=== PATIENT | male | born 1955 | race Caucasian/White ===

== ENCOUNTER 2018-03-29 05:59 | Inpatient (IN) | payer BC ==
[~2018-03-29] VITALS: Ht 175.3 cm; Wt 70.3 kg
[2018-03-29] VITALS (22 sets, daily range): BP systolic 98–149; BP diastolic 60–113
[2018-03-29] MEDS ORDERED: NS IV 1000 ML 1,000 ML ONE (06:27)
[2018-03-29] MEDS ORDERED: NS IV 1000 ML 1,000 ML IV SCH (06:30)
[2018-03-29 06:46] LABS: BASOPHILS % (AUTO) 0 % (0-10); EOSINOPHILS # (AUTO) 0.1 10^3/uL (0.0-0.3); EOSINOPHILS % (AUTO) 1 % (0-10); HEMATOCRIT 43 % (40-54); LYMPHOCYTES # (AUTO) 1.4 X 10^3 (1.0-4.0); LYMPHOCYTES % (AUTO) 12 % (12-44); MEAN CORPUSCULAR HEMOGLOBIN 30 PG (25-34); MEAN CORPUSCULAR HGB CONC 35 G/DL (32-36); MEAN CORPUSCULAR VOLUME 87 FL (80-99); MEAN PLATELET VOLUME 11.5 FL (7.4-10.4); MONOCYTES # (AUTO) 0.9 X 10^3 (0.0-1.0); MONOCYTES % (AUTO) 8 % (0-12); NEUTROPHILS # (AUTO) 9.3 X 10^3 (1.8-7.8); NEUTROPHILS % (AUTO) 79 % (42-75); PLATELET COUNT 203 10^3/uL (130-400); RED BLOOD COUNT 4.93 10^6/uL (4.35-5.85); WHITE BLOOD COUNT 11.7 10^3/uL (4.3-11.0)
[2018-03-29 07:08] LABS: ALANINE AMINOTRANSFERASE 17 U/L (0-55); ALKALINE PHOSPHATASE 69 U/L (40-136); BILIRUBIN,TOTAL 0.4 MG/DL (0.1-1.0); BUN/CREATININE RATIO 18; CALCIUM 8.8 MG/DL (8.5-10.1); CARBON DIOXIDE 20 MMOL/L (21-32); CHLORIDE 109 MMOL/L (98-107); GFR ESTIMATED > 60; GLUCOSE 102 MG/DL (70-105); POTASSIUM 3.8 MMOL/L (3.6-5.0); SODIUM 140 MMOL/L (135-145); TOTAL PROTEIN 6.4 GM/DL (6.4-8.2)
[2018-03-29 07:15] LABS: MYOGLOBIN SERUM 226.7 NG/ML (10.0-92.0)
--- NOTE | 2018-03-29 07:15 | Cardiology History & Physical ---
HPI-Cardiology Cardiology Consultation Date of Consultation 03/29/18 Date of Admission Time Seen by Provider: 07:11 Indication: chest pain HPI 62 years old gentleman with history of coronary artery disease, had a myocardial infarction over 10 years ago had a stent then occlusion of the stent and reported having another cleanout of the stent, does not follow up with a physician, does not take any medication and smokes. Started having chest pain last night/early this morning while working at [employer]. Pain persisted became diaphoretic CAD shortness of breath and lightheadedness. Came into the emergency room and given sublingual nitroglycerin which improved his chest pain. Started the pain again, given Nitropatch, while I was visiting with him he was still having some retrosternal chest discomfort, no similar episode recently. No recent trauma or bleeding. PMH-Cardiology Seasonal Allergies Seasonal Allergies: No Surgeries Yes Respiratory No Cardiovascular Yes (previous cardiac stent) Coronary Artery Disease Neurological No Genitourinary No Gastrointestinal No Musculoskeletal Yes Arthritis, Chronic Back Pain Endocrine No HEENT Yes ("lazy eye" surgery and nail through eye plus surgery) Eye Injury Hearing Impairment: Hard of Hearing Cancer No Psychosocial No Integumentary No Blood Transfusions No Social History Patient Social History Marrital Status: Employed/Student: employed Alcohol Use: Denies Use Recreational Drug Use: No Smoking: Current every day smoker Recent Foreign Travel: No Contact w/other who traveled: No Recent Infectious Disease Expo: No Family Hx Other strong family history of heart disease Family History: Cardiovascular disease 19 FATHER 19 MOTHER grandfather grandfather ROS-Cardiology Review of Systems General: No Chills, No Night Sweats; Fatigue; No Malaise, No Appetite HEENT: No Head Aches, No Visual Changes, No Eye Pain, No Ear Pain, No Dysphasia , No Sinus Congestion, No Post Nasal Drip, No Sore Throat Pulmonary: Dyspnea; No Cough, No Pleuritic Chest Pain Cardiovascular: Chest Pain; No: Palpitations, Orthopnea, Paroxysmal Noc. Dyspnea, Edema, Lt Headedness Gastrointestinal: Nausea; No: Vomiting, Abdominal Pain, Diarrhea, Constipation , Melena, Hematochezia Genitourinary: No Dysuria, No Frequency, No Incontinence, No Hematuria, No Retention Musculoskeletal: No: neck pain, shoulder pain, arm pain, back pain, hand pain, leg pain, foot pain Neurological: No: Weakness, Numbness, Incoordination, Change in speech, Confusion, Seizures Home Medications & Allergies Allergies: Coded Allergies: No Known Drug Allergies (Unverified , 03/29/18) Home Medication List Reviewed: Yes does not take any medication Exam-Cardiology Vital Signs Vital Signs Date Time Temp Pulse Resp B/P (MAP) Pulse Ox O2 Delivery O2 Flow Rate FiO2 03/29/18 06:09 60 03/29/18 06:08 98.1 16 141/95 (110) 98 Nasal Cannula 2.00 Exam General Appearance: Alert, Oriented X3, Cooperative, No Acute Distress HEENT: Atraumatic, PERRLA Respiratory: Clear to Auscultation, Normal Air Movement Cardiovascular: Regular Rate, Normal S1, Normal S2, No Murmurs Abdominal: Normal Bowel Sounds, Soft, No Tenderness, No Hepatosplenomegaly, No Masses Extremities: No Clubbing, No Cyanosis, No Edema, Normal Pulses, No Tenderness/ Swelling Skin: No Rashes, No Breakdown, No Significant Lesion Neuro: Normal Gait, Normal Speech, Strength at 5/5 X4 Ext, Normal Tone, Sensation Intact Psych/Mental Status: Mental Status NL, Mood NL Results Labs Labs Laboratory Tests 03/29/18 06:35: White Blood Count 11.7H, Red Blood Count 4.93, Hemoglobin 15.0, Hematocrit 43, Mean Corpuscular Volume 87, Mean Corpuscular Hemoglobin 30, Mean Corpuscular Hemoglobin Concent 35, Red Cell Distribution Width 14.0, Platelet Count 203, Mean Platelet Volume 11.5H, Neutrophils (%) (Auto) 79H, Lymphocytes (%) (Auto) 12, Monocytes (%) (Auto) 8, Eosinophils (%) (Auto) 1, Basophils (%) (Auto) 0, Neutrophils # (Auto) 9.3H, Lymphocytes # (Auto) 1.4, Monocytes # (Auto) 0.9, Eosinophils # (Auto) 0.1, Basophils # (Auto) 0.0, Sodium Level 140, Potassium Level 3.8, Chloride Level 109H, Carbon Dioxide Level 20L, Anion Gap 11, Blood Urea Nitrogen 14, Creatinine 0.80, Estimat Glomerular Filtration Rate > 60, BUN/ Creatinine Ratio 18, Glucose Level 102, Calcium Level 8.8, Corrected Calcium 8.8 , Total Bilirubin 0.4, Aspartate Amino Transf (AST/SGOT) 18, Alanine Aminotransferase (ALT/SGPT) 17, Alkaline Phosphatase 69, Total Protein 6.4, Albumin 4.0 A/P-Cardiology Admission Diagnosis Unstable angina Coronary artery disease Second-degree AV block Mobitz 1 Hypertension Tobaccoism Admission Status: Observation Assessment/Plan Unstable angina, having active chest pain, having nitroglycerin patch, I will evaluate EKG and planning to proceed with emergency cardiac catheterization Coronary artery disease, history of old myocardial infarction, reporting having a stent over 10 years ago. Not taking any medication Hypertension, will start him on anti-hypertensive medication, probably would not tolerate beta blockers due to second degree AV block Second-degree AV block Mobitz 1, transient occurred while in the emergency room on telemetry. Was asymptomatic other than his chest pain Hyperlipidemia, I will evaluate lipid profile Tobaccoism, educated on smoking cessation. Noncompliance with medication, educated about compliance Clinical Quality Measures DVT/VTE Risk/Contraindication: Risk Factor Score Per Nursin RFS Level Per Nursing on Admit: 3=High AUDIE WHALEY MD Mar 29, 2018 07:15
--- NOTE | 2018-03-29 07:15 | Cardiac Procedure Note-CS/ASA ---
Pre-Procedure Note Pre-Op Procedure Note H&P Reviewed The H&P was reviewed, patient examined and no changes noted. Date H&P Reviewed: Mar 29, 2018 Time H&P Reviewed: 07:15 Conscious Sedation Pre-Proced Time 07:15 ASA Score 3 For ASA 3 and 4: Consider anesthesia and medical clearance. Also, for patients with a history of failed moderate sedation consider anesthesia. Airway Lungs Heart ASA score ASA 1: a normal healthy patient ASA 2: a patient with a mild systemic disease (mid diabetes, controlled hypertension, obesity x ASA 3: a patient with a severe systemic disease that limits activity (angina , COPD, prior Myocardial infarction) ASA 4: a patient with an incapacitating disease that is a constant threat to life (CHF, renal failure) ASA 5: a moribund patient not expected to survive 24 hrs. (ruptured aneurysm) ASA 6: a declared brain patient whose organs are being harvested. For emergent operations, add the letter E after the classification Mallampati Classification Grade 3 Sedation Plan Analgesia, Amnesia, Plan communicated to team members, Discussed options with patient/fam, Discussed risks with patient/fam The patient is an appropriate candidate to undergo the planned procedure, sedation, and anesthesia. The patient immediately re-assessed prior to indication. AUDIE WHALEY MD Mar 29, 2018 07:15
[2018-03-29] MEDS ORDERED: LIDOCAINE 1% INJ 20 ML 20 ML VIAL INJ ONE (07:51)
[2018-03-29] MEDS ORDERED: HEParin 1000 UNIT/ML (10ML VIAL) FOR BOLUS IV ONE (07:51)
[2018-03-29] MEDS ORDERED: HEParin (CATH LAB) 1,000 ML IV ONE (07:51)
[2018-03-29] MEDS ORDERED: MIDAZOLAM 5 MG/5 ML (VERSED) VIAL IV ONE (07:52)
[2018-03-29] MEDS ORDERED: fentaNYL INJECTION 100 MCG/2 ML AMP INJ ONE (07:52)
[2018-03-29 07:55] LABS: INR 1.1 (0.8-1.4); PROTHROMBIN TIME PATIENT 14.2 SEC (12.2-14.7)
[2018-03-29] MEDS ORDERED: FLU QUADRIvalent (5+ YOA) 2018-2019 (AFLURIA) 0.5 ML IM ONE (08:15)
[2018-03-29] MEDS ORDERED: NITRO DRIP 25000 MCG/D5W 250 ML IV ONE (08:42)
[2018-03-29] MEDS ORDERED: EPTIFIBATIDE BOLUS 10 ML IV ONE (08:45)
[2018-03-29] MEDS ORDERED: PATIENT MAY USE OWN MEDS, ALL PO SCH (09:00)
[2018-03-29] MEDS ORDERED: TICAGRELOR 90 MG TABLET (BRILINTA) PO ONE (09:17)
[2018-03-29] MEDS ORDERED: ASPIRIN 325 MG (5 GR) TABLET PO ONE (09:17)
[2018-03-29] MEDS: NS IV 1000 ML 1,000 ML IV SCH ×2 (10:39→20:21)
[2018-03-29] MEDS: PANTOPRAZOLE 40 MG (PROTONIX) TAB PO SCH (10:39)
[2018-03-29] MEDS: TICAGRELOR 90 MG TABLET (BRILINTA) PO SCH ×2 (10:40→21:10)
[2018-03-29] MEDS: ASPIRIN E.C. 81 MG (ECOTRIN) TAB PO SCH (10:40)
--- NOTE | 2018-03-29 13:40 | Cardiac Cath Report ---
Cardiac Cath Report Physician (s)/Pot Feeder (s) Physician AUDIE WHALEY MD Pre-Procedure Diagnosis Pre-Procedure Diagnosis: acute myocardial infarction Post-Procedure Note Name of Procedure: Left heart catheterization Stent to the circumflex artery Findings/Procedure Note PROCEDURE NOTE: 62 years old gentleman with history of coronary artery disease had a stent to the LAD in the remote past. Started having acute chest pain sudden onset, had minimal EKG changes. Cardiac enzymes were negative, he was transferred from [place] to our hospital. Upper my evaluation patient was having active chest pain, I called for emergency cardiac catheterization After explaining the procedure to the patient, all pros and cons were explained , all questions were answered. The patient signed the consent and then he was placed on the cardiac catheterization laboratory. Groin was prepped SL fashion local anesthesia was used. Sheath placed in the right femoral artery. Chandrika right and left catheter were used to access the coronary system. Chandrika right catheter was advanced to the left ventricular cavity, left ventricular gram was done. Pullback LV to aorta was done. Next Patient was given 7000 units of heparin, single bolus of Integrilin. EBU guide was used, had total occlusion of the circumflex artery distally. BMW wire was advanced then predilated location with 2.5 balloon was done then I proceeded with placement of Brenda drug-eluting stent 2.5 time 18 mm expanded to 2.71 mm with excellent results. No complication noted. At the end of the procedure the sheath was removed. Closure device was used FINDINGS: Hemodynamics LV 129/19, end-diastolic pressure of 19 Aorta 146/79 mean of 109 ANATOMY: Left Main is free of obstructive disease Left Anterior Descending has patent stent with mild to moderate disease nonobstructive disease in the LAD Left Circumflex is totally occluded at the mid to distal portion, successful emergency angioplasty then stenting using Brenda 2.5 time 18 mm expanded to 2.71 mm with excellent results Right Coronory Artery is dominant artery with mild disease no obstructive disease LV Gram is normal in size with normal contraction. Estimated ejection fraction 60 percent CONCLUSION: 1. Acute myocardial infarction, non-ST elevation myocardial infarction with total occlusion of the circumflex artery successful emergency angioplasty then stenting using Brenda 2.5 time 18 mm expanded to 2.71 mm with excellent results 2. Patent stent in the LAD with mild disease nonobstructive disease 3. Mild disease in the dominant right coronary artery nonobstructive disease 4. Normal left ventricular size and systolic function estimated ejection fraction 60 percent DISCUSSION AND RECOMMENDATION: Continue to maximize medical therapy Anesthesia Type: Conscious Sedation Estimated blood loss (mL): 20 ml Contrast Amount: 140 ml Total Radiation Dose: 685 mGy Post-Procedure Diagnosis Post-operative diagnosis: Non-ST myocardial infarction Coronary artery disease Hypertension Hyperlipidemia AUDIE WHALEY MD Mar 29, 2018 13:40
[2018-03-29] MEDS: OMEGA 3 (FISH OIL) 1000 MG CAP PO SCH (17:25)
[2018-03-29] MEDS ORDERED: ATORVASTATIN 80 MG (LIPITOR) TABLET PO SCH (21:00)
[2018-03-30] VITALS (12 sets, daily range): BP systolic 106–147; BP diastolic 64–94
[2018-03-30 03:46] LABS: HEMOGLOBIN 14.9 G/DL (13.3-17.7); MEAN PLATELET VOLUME 11.7 FL (7.4-10.4); RED BLOOD COUNT 4.91 10^6/uL (4.35-5.85); RED CELL DISTRIBUTION WIDTH 14.3 % (10.0-14.5); WHITE BLOOD COUNT 8.5 10^3/uL (4.3-11.0)
[2018-03-30 04:00] LABS: BUN/CREATININE RATIO 13; CARBON DIOXIDE 19 MMOL/L (21-32); CHLORIDE 111 MMOL/L (98-107); CREATININE SERUM 0.79 MG/DL (0.60-1.30); GFR ESTIMATED > 60; GLUCOSE 95 MG/DL (70-105); POTASSIUM 4.1 MMOL/L (3.6-5.0); SODIUM 140 MMOL/L (135-145)
[2018-03-30] MEDS: NS IV 1000 ML 1,000 ML IV SCH (05:00)
[2018-03-30] MEDS: OMEGA 3 (FISH OIL) 1000 MG CAP PO SCH (06:44)
[2018-03-30] MEDS ORDERED: ATOR80TA76 PO (09:01)
[2018-03-30] MEDS ORDERED: PANT40TA3 PO (09:01)
[2018-03-30] MEDS ORDERED: TICA90TA PO (09:01)
[2018-03-30] MEDS ORDERED: ASPI-983 PO (09:01)
[2018-03-30] MEDS ORDERED: OMG1KC PO (09:01)
--- NOTE | 2018-03-30 09:03 | Discharge Inst-Post CATH ---
Discharge Inst-CATH/EP Post Cardiac Cath/EP D/C Inst Follow Up/Plan Appointment with Dr. Rahman's office in 2 weeks CARDIAC CATH DISCHARGE INSTRUCTIONS *Hold Metformin for 48 hours post heart cath. ACTIVITY * Go Home directly and rest. * Limit activity of the leg (or wrist if it was used) for 7 days including aerobics, swimming, jogging, bicycling, etc. * Restrict stair-climbing for 7 days if possible, if not, climb up with your non -cath leg, then bring together on the same step. * Avoid lifting, pushing, pulling or excessive movement of the affected extremity for 7 days. * Customary sexual activity may be resumed after 2 days-use caution not to use a position that strains or causes pain to the affected extremity. * No driving for 24 hours. * NO SMOKING. * Avoid straining for bowel movements for 7 days. * Gentle walking on level ground is allowed. * Returning to work will depend on the type of procedure and the results. Your doctor will discuss this with you. CALL YOUR DOCTOR FOR ANY OF THE FOLLOWING: *If bleeding from the puncture site occurs- Apply gentle pressure to site with clean cloth and call your doctor or EMS. * If a knot or lump forms under the skin, increases in size, or causes pain. * If bruising appears to be worsening or moving further down your leg instead of disappearing. * Temperature above 101 F. CARE OF YOUR GROIN INCISION; * Bruising or purple discoloration of the skin near the puncture site is common. * You may shower only, no bathtub bathing for 5 days. Be careful to avoid slipping as your leg may feel stiff. * If a closure device was used on your femoral artery, please see the attached guide regarding care of the device and your leg. * Leave the dressing on, until removed by office staff. CARE OF YOUR WRIST INCISION; * Bruising or purple discoloration of the skin near the puncture site is common. * You may shower. * DO NOT submerge wrist. * Leave dressing on, until removed by office staff.. AUDIE RAHMAN MD Mar 30, 2018 09:03
[2018-03-30] MEDS: PANTOPRAZOLE 40 MG (PROTONIX) TAB PO SCH (09:05)
[2018-03-30] MEDS: TICAGRELOR 90 MG TABLET (BRILINTA) PO SCH (09:05)
[2018-03-30] MEDS: ASPIRIN E.C. 81 MG (ECOTRIN) TAB PO SCH (09:05)
--- NOTE | 2018-03-30 09:07 | Cardiology Discharge Summary ---
Diagnosis/Chief Complaint Date of Admission Mar 29, 2018 at 06:05 Date of Discharge March 30, 2000 Admission Diagnosis Unstable angina Coronary artery disease Second-degree AV block Mobitz 1 Hypertension Tobaccoism Discharge Diagnosis Non-ST elevation myocardial infarction Coronary artery disease Second-degree AV block Mobitz 1 Hypertension Tobaccoism Chief Complaint/HPI Chief Complaint/HPI 62 years old gentleman with history of coronary artery disease, had a myocardial infarction over 10 years ago had a stent then occlusion of the stent and reported having another cleanout of the stent, does not follow up with a physician, does not take any medication and smokes. Started having chest pain last night/early this morning while working at [employer]. Pain persisted became diaphoretic CAD shortness of breath and lightheadedness. Came into the emergency room and given sublingual nitroglycerin which improved his chest pain. Started the pain again, given Nitropatch, while I was visiting with him he was still having some retrosternal chest discomfort, no similar episode recently. No recent trauma or bleeding. Patient was taken to the catheter lab, had total occlusion of the 2 distal circumflex artery underwent angina plasty and stenting to the artery with excellent results, had troponin rise. Feeling well today. Denied any active pain. Groin is healing well. Educated on his condition and on smoking cessation and he will be discharged home Discharge Summary Hospital Course Hospital Course Unstable angina, non-ST elevation myocardial infarction status post cardiac catheterization and stenting to the circumflex artery with excellent results. We'll continue on aspirin and Brilinta. Educated in length about compliance with medication Coronary artery disease, history of old myocardial infarction, reporting having a stent over 10 years ago. to catheterization results: 1. Acute myocardial infarction, non-ST elevation myocardial infarction with total occlusion of the circumflex artery successful emergency angioplasty then stenting using Brenda 2.5 time 18 mm expanded to 2.71 mm with excellent results 2. Patent stent in the LAD with mild disease nonobstructive disease 3. Mild disease in the dominant right coronary artery nonobstructive disease 4. Normal left ventricular size and systolic function estimated ejection fraction 60 percent Hypertension, unable to tolerate beta blockers due to second-degree AV block. It could be secondary to his myocardial infarction. Currently more stable. Continue to monitor Second-degree AV block Mobitz 1, transient occurred while in the emergency room on telemetry. Hyperlipidemia, started on Lipitor 80 mg daily Tobaccoism, educated on smoking cessation. Noncompliance with medication, educated about compliance Labs Laboratory Tests 03/29/18 06:35: White Blood Count 11.7H, Mean Platelet Volume 11.5H, Neutrophils (%) (Auto) 79H , Neutrophils # (Auto) 9.3H, Chloride Level 109H, Carbon Dioxide Level 20L, Myoglobin 226.7H 03/30/18 03:39: Mean Platelet Volume 11.7H, Chloride Level 111H, Carbon Dioxide Level 19L, Troponin I 18.90*H Procedures None. Discharge Physical Examination Allergies: Coded Allergies: No Known Drug Allergies (Unverified , 03/29/18) Vitals & I&Os Vital Signs Date Time Temp Pulse Resp B/P (MAP) Pulse Ox O2 Delivery O2 Flow Rate FiO2 03/30/18 07:40 95 Room Air 03/30/18 07:00 98.9 64 18 124/83 (97) 03/30/18 04:00 2.00 General Appearance: Alert, Oriented X3, Cooperative, No Acute Distress HEENT: Atraumatic, PERRLA Respiratory: Clear to Auscultation, Normal Air Movement Cardiovascular: Regular Rate, Normal S1, Normal S2, No Murmurs Abdominal: Normal Bowel Sounds, Soft, No Tenderness, No Hepatosplenomegaly, No Masses Extremities: No Clubbing, No Cyanosis, No Edema, Normal Pulses, No Tenderness/ Swelling Skin: No Rashes, No Breakdown, No Significant Lesion Neuro: Normal Gait, Normal Speech, Strength at 5/5 X4 Ext, Normal Tone, Sensation Intact, Cranial Nerves 3-12 NL, Reflexes 2+ Psych/Mental Status: Mental Status NL, Mood NL Discharge Home Medications Reviewed and agree with Discharge Medication list on patient's Discharge Instruction sheet Instructions to Patient/Family Please see electronic discharge instructions given to patient. Clinical Quality Measures DVT/VTE Risk/Contraindication: Risk Factor Score Per Nursin RFS Level Per Nursing on Admit: 3=High AUDIE WHALEY MD Mar 30, 2018 09:07
== END 2018-03-30 10:30 | disposition home or self-care (01) | DRG 247 ==
LOC: ICU 06:05
PROVIDERS: ADMIT Internal Medicine Cardiovascular Disease; ATTEND Internal Medicine Cardiovascular Disease
PROC: 027034Z Dilation of Coronary Artery, One Artery with Drug-eluting Intraluminal Device, Percutaneous Approach (ICD-10-PCS; principal; 2018-03-29)
PROC: 4A023N7 Measurement of Cardiac Sampling and Pressure, Left Heart, Percutaneous Approach (ICD-10-PCS; 2018-03-29)
PROC: B2111ZZ Fluoroscopy of Multiple Coronary Arteries using Low Osmolar Contrast (ICD-10-PCS; 2018-03-29)
PROC: B2151ZZ Fluoroscopy of Left Heart using Low Osmolar Contrast (ICD-10-PCS; 2018-03-29)
DX: I21.4 Non-ST elevation (NSTEMI) myocardial infarction (principal); I25.110 Atherosclerotic heart disease of native coronary artery with unstable angina pectoris; Z95.5 Presence of coronary angioplasty implant and graft; I25.2 Old myocardial infarction; F17.200 Nicotine dependence, unspecified, uncomplicated; I44.1 Atrioventricular block, second degree; I10 Essential (primary) hypertension; E78.5 Hyperlipidemia, unspecified; Z91.14 Patient's other noncompliance with medication regimen
CPT/HCPCS: 36415; 80048; 80053; 83874; 84484; 85025; 85027; 85347; 85610; 85730; 87081; 93005; 93458

== ENCOUNTER → 2018-12-10 | Outpatient (CLI) | payer BC ==
[~2018-12-10] MED LIST: ASPI-983 PO; ATOR80TA76 PO; OMG1KC PO; PANT40TA3 PO; TICA90TA PO
[2018-12-10] MEDS: CATHETER FLUSH 10 ML SYR IV PRN (07:20)
[2018-12-10 09:09] VITALS: BP 115/71
[2018-12-10 09:26] VITALS: BP 106/83
--- NOTE | 2018-12-10 16:04 | STRESS TEST ---
DATE OF SERVICE: 12/10/2018 [facility] STRESS TEST REPORT REFERRING PHYSICIAN: No local physician. Baseline heart rate is 63. Baseline blood pressure 112/73. Baseline EKG is sinus rhythm with no ischemic changes. In summary, the patient was injected with 10.8 mCi of technetium-99 Myoview and the resting images were obtained. Then, the patient started exercising with a baseline heart rate, blood pressure and EKG mentioned above. The patient was able to exercise for 8 minutes 45 seconds on standard Med protocol. With peak exercise level, EKG was showing [address] depression in II, III, aVF. Blood pressure was 192/91. During recovery, heart rate and blood pressure returned to baseline. EKG returned to baseline. The resting and stress images were reviewed and compared in the short axis, horizontal long axis, and vertical long axis views. Review of the images showed good radiotracer uptake with no significant ischemia or infarction. SSS is 2, SDS 0. TID value 1.1. On the gated images, the left ventricle appeared to be normal size with normal contractility. Calculated ejection fraction 60%. IN CONCLUSION: 1. Fair exercise tolerance, a total of 8 minutes 45 seconds on standard Med protocol, total of 10.1 METS achieving 86% of maximum expected heart rate. 2. Hypertensive response to exercise with peak blood pressure 192/91, returned to baseline during recovery. 3. Nondiagnostic EKG changes with exercise returned to baseline during recovery. 4. No ischemia or infarction on SPECT images. 5. Normal left ventricular size with normal contractility. Calculated ejection fraction 60%. Job ID: [id number] DocumentID: [id number] Dictated Date: 12/10/2018 15:55:30 Commercial Loan Specialist Date: 12/10/2018 16:03:36 Dictated By: AUDIE WHALEY MD
== END ==
LOC: CARD 06:55
PROVIDERS: ATTEND Internal Medicine Cardiovascular Disease
DX: I25.10 Atherosclerotic heart disease of native coronary artery without angina pectoris (principal); E78.2 Mixed hyperlipidemia; Z72.0 Tobacco use
CPT/HCPCS: 78452; 93017

== ENCOUNTER 2019-01-22 06:40 | Inpatient (IN) | payer BC ==
[2019-01-22] VITALS (11 sets, daily range): BP systolic 106–151; BP diastolic 80–92
[~2019-01-22] VITALS: Ht 175.2 cm; Wt 68.1 kg
[2019-01-22] MEDS ORDERED: morphine INJ 10 MG/ML 1ML (SYR OR VIAL) IVP STA (06:52)
--- NOTE | 2019-01-22 06:52 | ED Chest Pain ---
General Stated Complaint: CHEST PAIN History of Present Illness Date Seen by Provider: Jan 22, 2019 Time Seen by Provider: 06:48 Initial Comments 53-year-old male with known coronary artery disease status post LAD stent and circumflex MN with another stent in March 2018 He doesn't know the time of onset of symptoms but started this morning with severe lower substernal pain, says it feels like his prior episodes of coronary occlusion Not short of breath has had no nausea or vomiting, had 10/10 pain, started to lighten up here to 3-4, but then worse again Patient clearly in distress and writhing, says this is the same pain he's had with prior MIs Allergies and Home Medications Allergies Coded Allergies: No Known Drug Allergies (Unverified , 03/29/18) Home Medications Aspirin 81 Mg Tablet.dr, 81 MG PO DAILY Prescribed by: AUDIE WHALEY on 03/30/18900 Atorvastatin Calcium 80 Mg Tablet, 80 MG PO HS Prescribed by: AUDIE WHALEY on 03/30/18900 [place] 3 Polyunsat Fatty Acids 1,000 Mg Cap, 1,000 MG PO BID WITH MEALS Prescribed by: AUDIE WHALEY on 03/30/18900 Pantoprazole Sodium 40 Mg Tablet.dr, 40 MG PO DAILY Prescribed by: AUDIE WHALEY on 03/30/18900 Ticagrelor 90 Mg Tablet, 90 MG PO BID Prescribed by: AUDIE WHALEY on 03/30/18900 Patient Home Medication List Home Medication List Reviewed: Yes Review of Systems Review of Systems Constitutional: No fever Respiratory: Denies Shortness of Air Cardiovascular: Chest Pain Gastrointestinal: No Symptoms Reported Musculoskeletal: no symptoms reported Past Fpdhxbx-Ieqdgy-Xttdel Hx Patient Social History Type Used: Cigarettes Recent Foreign Travel: Yes Recent Hopitalizations: No Immunizations Up To Date PED Vaccines UTD: No Seasonal Allergies Seasonal Allergies: No Past Medical History Surgeries: Yes Respiratory: No Cardiac: Yes (previous cardiac stent) Neurological: No Genitourinary: No Gastrointestinal: No Musculoskeletal: Yes Arthritis, Chronic Back Pain Endocrine: No HEENT: Yes ("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 8.0oz. 70.128119kh; 22.8 BMI Method: General Appearance: Moderate Distress Cardiovascular: Regular Rate, Rhythm Gastrointestinal: Non Tender Extremity: No Pedal Edema Progress/Results/Core Measures Results/Orders Lab Results Laboratory Tests Test 01/22/19 06:54 Range/Units White Blood Count 9.0 4.3-11.0 10^3/uL Red Blood Count 5.22 4.35-5.85 10^6/uL Hemoglobin 15.7 13.3-17.7 G/DL Hematocrit 46 40-54 % Mean Corpuscular Volume 88 80-99 FL Mean Corpuscular Hemoglobin 30 25-34 PG Mean Corpuscular Hemoglobin Concent 34 32-36 G/DL Red Cell Distribution Width 13.4 10.0-14.5 % Platelet Count 268 130-400 10^3/uL Mean Platelet Volume 11.5 H 7.4-10.4 FL Neutrophils (%) (Auto) 48 42-75 % Lymphocytes (%) (Auto) 33 12-44 % Monocytes (%) (Auto) 14 H 0-12 % Eosinophils (%) (Auto) 4 0-10 % Basophils (%) (Auto) 1 0-10 % Neutrophils # (Auto) 4.4 1.8-7.8 X 10^3 Lymphocytes # (Auto) 3.0 1.0-4.0 X 10^3 Monocytes # (Auto) 1.3 H 0.0-1.0 X 10^3 Eosinophils # (Auto) 0.3 0.0-0.3 10^3/uL Basophils # (Auto) 0.1 0.0-0.1 10^3/uL Sodium Level 142 135-145 MMOL/L Potassium Level 4.0 3.6-5.0 MMOL/L Chloride Level 107 98-107 MMOL/L Carbon Dioxide Level 23 21-32 MMOL/L Anion Gap 12 5-14 MMOL/L Blood Urea Nitrogen 17 7-18 MG/DL Creatinine 0.86 0.60-1.30 MG/DL Estimat Glomerular Filtration Rate > 60 BUN/Creatinine Ratio 20 Glucose Level 96 70-105 MG/DL Calcium Level 9.4 8.5-10.1 MG/DL Corrected Calcium 9.2 8.5-10.1 MG/DL Magnesium Level 2.1 1.6-2.4 MG/DL Total Bilirubin 0.2 0.1-1.0 MG/DL Aspartate Amino Transf (AST/SGOT) 13 5-34 U/L Alanine Aminotransferase (ALT/SGPT) 15 0-55 U/L Alkaline Phosphatase 80 40-136 U/L Myoglobin 40.5 10.0-92.0 NG/ML Total Protein 6.7 6.4-8.2 GM/DL Albumin 4.2 3.2-4.5 GM/DL My Orders Orders - HERIBERTO FONG MD Cbc With Automated Diff (01/22/19 06:46) Magnesium (01/22/19 06:46) Chest 1 View Ap/Pa Only (01/22/19 06:46) Ekg Tracing (01/22/19 06:46) Comprehensive Metabolic Panel (01/22/19 06:46) Myoglobin Serum (01/22/19 06:46) Protime With Inr (01/22/19 06:46) Partial Thromboplastin Time (01/22/19 06:46) O2 (01/22/19 06:46) Monitor-Rhythm Ecg Trace Only (01/22/19 06:46) Lipid Panel (01/23/19 06:00) Ed Iv/Invasive Line Start (01/22/19 06:46) Troponin I Fs (01/22/19 06:46) Oxygen-Administer (01/22/19 06:52) Morphine Injection (Morphine Injection (01/22/19 06:52) Heparin (Bolus Per Protocol) (Heparin (B (01/22/19 07:04) Heparin (Bolus Per Protocol) (Heparin (B (01/22/19 07:15) Heparin Drip [id number] Unit/500ml (Heparin (01/22/19 07:18) Vital Signs/I&O 01/22/19 01/22/19 06:50 07:00 Temp 36.1 Pulse 88 Resp 21 B/P (MAP) 160/108 (125) Pulse Ox 99 O2 Delivery Room Air Nasal Cannula O2 Flow Rate 2.00 Initial ECG Impression Date: Jan 22, 2019 Initial ECG Impression Time: 07:27 Comment EKG shows sinus rhythm there is a hint perhaps [address] elevation in V2 this does not meet STEMI criteria troponin is 0.34 believe patient is is trying to evolve an anterior MN He's had Brillinta aspirin nitro paste oxygen morphine heparin bolus and drip Currently pulse is 95 blood pressure 152/108 Pain is actually much better with the moment Patient received his prior cardiac care at [facility] have discussed with Dr. Heredia sld inclusion teacher there this a.m. Plan is to transfer him urgently with heparin drip going to catheter lab there Departure Communication (Admissions) Time/Spoke to Admitting Phy: 07:32 Family Conversation Explained to the family suspect evolving MN transferring to Counselor/Art Therapist Impression Primary Impression: Acute myocardial infarction Qualified Codes: I21.4 - Non-ST elevation (NSTEMI) myocardial infarction Disposition: 09 ADMITTED INPATIENT Condition: Critical Admissions Decision to Admit Reason: Admit from ER (General) Decision to Admit/Date: Jan 22, 2019 Time/Decision to Admit Time: 07:31 Transfer Transfer Reason: Exceeds level of care Time Spoke to Accepting Phy: 07:31 Transfer Facility: [facility] patient's to go directly to Counselor/Art Therapist Dr. Heredia accepts Method of Transfer: EMS Departure-Patient Inst. Referrals: LASHAUN HAUSER MD (PCP/Family) Primary Care Physician HERIBERTO FONG MD Jan 22, 2019 06:52
[2019-01-22 07:00] LABS: HEMATOCRIT 46 % (40-54); HEMOGLOBIN 15.7 G/DL (13.3-17.7); MEAN CORPUSCULAR HEMOGLOBIN 30 PG (25-34); MEAN CORPUSCULAR VOLUME 88 FL (80-99)
[2019-01-22] MEDS ORDERED: ASPIRIN 81 MG CHEW (CHILDREN'S ASA) PO ONE (07:00)
[2019-01-22 07:01] LABS: BASOPHILS # (AUTO) 0.1 10^3/uL (0.0-0.1); BASOPHILS % (AUTO) 1 % (0-10); EOSINOPHILS # (AUTO) 0.3 10^3/uL (0.0-0.3); EOSINOPHILS % (AUTO) 4 % (0-10); LYMPHOCYTES % (AUTO) 33 % (12-44); MEAN CORPUSCULAR HGB CONC 34 G/DL (32-36); MEAN PLATELET VOLUME 11.5 FL (7.4-10.4); MONOCYTES # (AUTO) 1.3 X 10^3 (0.0-1.0); MONOCYTES % (AUTO) 14 % (0-12); NEUTROPHILS # (AUTO) 4.4 X 10^3 (1.8-7.8); NEUTROPHILS % (AUTO) 48 % (42-75); PLATELET COUNT 268 10^3/uL (130-400); RED CELL DISTRIBUTION WIDTH 13.4 % (10.0-14.5)
[2019-01-22] MEDS ORDERED: HEParin 1000 UNIT/ML (10ML VIAL) FOR BOLUS ONE (07:04)
--- NOTE | 2019-01-22 07:14 | NUR ---
FAMILY BROUGHT INTO THE ROOM.
[2019-01-22] MEDS ORDERED: HEParin 1000 UNIT/ML (10ML VIAL) FOR BOLUS IV SCH (07:15)
[2019-01-22] MEDS ORDERED: HEParin DRIP 25000 UNIT/500ML 500 ML IV ONE ×2 (07:18→07:24)
--- NOTE | 2019-01-22 07:22 | Diagnostic Imaging Report ---
Indication: Chest pain Portable chest 7:03 AM Heart size and pulmonary vascularity normal. Lungs are clear. There are no effusions or pneumothoraces. IMPRESSION: Negative chest Dictated by: Dictated on workstation # [id number]
[2019-01-22 07:25] LABS: CARBON DIOXIDE 23 MMOL/L (21-32); CHLORIDE 107 MMOL/L (98-107); SODIUM 142 MMOL/L (135-145)
[2019-01-22 07:26] LABS: ALANINE AMINOTRANSFERASE 15 U/L (0-55); ALBUMIN 4.2 GM/DL (3.2-4.5); ALKALINE PHOSPHATASE 80 U/L (40-136); BILIRUBIN,TOTAL 0.2 MG/DL (0.1-1.0); BUN/CREATININE RATIO 20; CALCIUM 9.4 MG/DL (8.5-10.1); CREATININE SERUM 0.86 MG/DL (0.60-1.30); GFR ESTIMATED > 60; GLUCOSE 96 MG/DL (70-105); MAGNESIUM 2.1 MG/DL (1.6-2.4); TOTAL PROTEIN 6.7 GM/DL (6.4-8.2)
[2019-01-22 07:27] LABS: INR 1.1 (0.8-1.4); PROTHROMBIN TIME PATIENT 14.5 SEC (12.2-14.7)
[2019-01-22] MEDS ORDERED: NS IV 1000 ML 1,000 ML ONE (07:28)
[2019-01-22] MEDS ORDERED: HEParin (CATH LAB) 2,000 ML IV ONE (07:28)
[2019-01-22] MEDS ORDERED: LIDOCAINE 1% INJ 20 ML 20 ML VIAL ONE (07:28)
[2019-01-22] MEDS ORDERED: MIDAZOLAM 5 MG/5 ML (VERSED) VIAL ONE (07:29)
[2019-01-22] MEDS ORDERED: fentaNYL INJECTION 100 MCG/2 ML AMP ONE (07:30)
[2019-01-22] MEDS ORDERED: EPTIFIBATIDE DRIP 100 ML IV ONE (08:19)
[2019-01-22] MEDS ORDERED: EPTIFIBATIDE BOLUS 20 ML IV ONE (08:19)
[2019-01-22] MEDS ORDERED: NITRO DRIP 25000 MCG/D5W 250 ML IV ONE (08:29)
[2019-01-22] MEDS ORDERED: NS (IVPB) 250 ML ONE (08:45)
[2019-01-22] MEDS ORDERED: niCARdipine 25 MG/10 ML (CARDENE) AMP IV ONE (08:45)
[2019-01-22] MEDS ORDERED: TICAGRELOR 90 MG TABLET (BRILINTA) PO ONE (09:05)
--- NOTE | 2019-01-22 09:32 | Cardiology History & Physical ---
HPI-Cardiology Cardiology H&P Date of Admission 01/22/19 Primary Care Physician Thony Saenz MD Attending Physician Clarisa Heredia MD, [facility] Primary reed or wind instrument repairer: Dr Rahman Consulting Physician [facility] CC: Severe, crushing chest pain HPI: 63 yo man who awoke with severe, crushing chest pain in the midsternum, feeling of extreme pressure, worst pain he has ever had. It was associated with diaphoresis, shortness of breath and a sense of impending doom. He went to the [facility] ER. Pain could not be controlled. ECG showed only subtle changes, but the clinical scenario was consistent with acute [place]. The ER physician called us. We advised transfer directly to our card labview programmer if he was willing to undergo cath and probable intervention. The ER physician spoke with the pt. Mr Vergara consented to transfer to our labview programmer for cath and probable PCI. He was transferred to us. We spoke with him again regarding our plans. He understood and provided oral consent. Procedure was undertaken immediately. The LAD was completely occluded within a mid-vessel stent. Emergency PCI was carried out with good results. Currently, he feels well and does not report any symptoms (after PCI) Review of Systems-Cardiology Review of Systems Constitutional: No weight loss, No weight gain Eyes: No vision change Ears/Nose/Throat: No ear discharge, No recent hearing loss Respiratory: As described under HPI Cardiovascular: As described under HPI Gastrointestinal: No diarrhea; nausea (during chest pain); No vomiting Genitourinary: No dysuria, No hematuria, No urine frequency changes Musculoskeletal: No back pain Skin: No rash, No ulcerations Psychiatric/Neurological: No seizure, No focal weakness, No syncope Hematologic: No bleeding abnormalities YDU-Lkohzf-Ahyiti Hx Patient Social History Alcohol Use: Denies Use Recreational Drug Use: No Smoking Status: Current Everyday Smoker Type Used: Cigarettes 2nd Hand Smoke Exposure: No Recent Foreign Travel: No Recent Infectious Disease Expo: No Hospitalization with Isolation: Denies Past Medical History PMH As described under Assessment. Family Medical History Family History: Cardiovascular disease 19 FATHER 19 MOTHER grandfather grandfather Allergies and Home Medications Allergies Coded Allergies: No Known Drug Allergies (Unverified , 03/29/18) Home Medications Aspirin 81 Mg Tablet., 81 MG PO DAILY Prescribed by: AUDIE RAHMAN on 12/23/18 0901 Atorvastatin Calcium 80 Mg Tablet, 80 MG PO HS Prescribed by: AUDIE RAHMAN on 03/30/18900 [place] 3 Polyunsat Fatty Acids 1,000 Mg Cap, 1,000 MG PO BID WITH MEALS Prescribed by: AUDIE RAHMAN on 03/30/18900 Pantoprazole Sodium 40 Mg Tablet.dr, 40 MG PO DAILY Prescribed by: AUDIE RAHMAN on 03/30/18900 Ticagrelor 90 Mg Tablet, 90 MG PO BID Prescribed by: AUDIE RAHMAN on 03/30/18900 Patient Home Medication List Home Medication List Reviewed: Yes Physical Exam-Cardiology Physical Exam Vital Signs/I&O 01/22/19 01/22/19 01/22/19 06:50 07:00 07:40 Temp 36.1 36.8 Pulse 88 99 Resp 21 20 B/P (MAP) 160/108 (125) 152/108 (123) Pulse Ox 99 99 O2 Delivery Room Air Nasal Cannula Nasal Cannula O2 Flow Rate 2.00 2.00 Capillary Refill : Less Than 3 Seconds Constitutional: AAO x 3, well-developed, well-nourished HEENT: PERRL, EOMI; No xanthelasmas are seen Neck: carotid pulses are 2 + bilaterally, with good upstrokes Respiratory: No accessory muscle use; other (good bilateral air entry) Cardiovascular: regular rate-rhythm, S1 and S2, systolic murmur (faint JANEL at card base) Gastrointestinal: No tender; soft; No guarding, No rebound; audible bowel sounds Extremities: No clubbing, No cyanosis, No significant edema Neurologic/Psychiatric: oriented x 3, grossly intact, power is 5/5 both on sides Skin: No rash on exposed areas, No ulcerations on exposed areas Data Review Labs Laboratory Tests 01/22/19 06:54: White Blood Count 9.0, Red Blood Count 5.22, Hemoglobin 15.7, Hematocrit 46, Mean Corpuscular Volume 88, Mean Corpuscular Hemoglobin 30, Mean Corpuscular Hemoglobin Concent 34, Red Cell Distribution Width 13.4, Platelet Count 268, Mean Platelet Volume 11.5H, Neutrophils (%) (Auto) 48, Lymphocytes (%) (Auto) 33, Monocytes (%) (Auto) 14H, Eosinophils (%) (Auto) 4, Basophils (%) (Auto) 1, Neutrophils # (Auto) 4.4, Lymphocytes # (Auto) 3.0, Monocytes # (Auto) 1.3H, Eosinophils # (Auto) 0.3, Basophils # (Auto) 0.1, Prothrombin Time 14.5, INR Comment 1.1, Activated Partial Thromboplast Time 32, Sodium Level 142, Potassium Level 4.0, Chloride Level 107, Carbon Dioxide Level 23, Anion Gap 12, Blood Urea Nitrogen 17, Creatinine 0.86, Estimat Glomerular Filtration Rate > 60, BUN/Creatinine Ratio 20, Glucose Level 96, Calcium Level 9.4, Corrected Calcium 9.2, Magnesium Level 2.1, Total Bilirubin 0.2, Aspartate Amino Transf (AST/SGOT) 13, Alanine Aminotransferase (ALT/SGPT) 15, Alkaline Phosphatase 80, Myoglobin 40.5, Troponin I 0.34*H, Total Protein 6.7, Albumin 4.2 A/P-Cardiology Assessment/Admission Diagnosis Acute STEMI CAD. Cath of 01/22/19 showed occluded midvessel stent in LAD to which successful PCI was carried out (PTCA followed by proximal, overlapping stenting with Brenda 2.5 x 12); patent stent in a large OM (Brenda 2.5 x 18 in Mar 2018); mild disease in RCA, LVEDP 20 mmHg, LVEF 45-50% Chronic tobacco use H/o intermittent noncompliance with meds H/o hyperlipidemia, treated with atorvastatin Admission Status: Inpatient Order (span 2 midnights) Reason for Inpatient Admission: Ac STEMI Discussion and Recomendations * Brilinta and low-dose ASA * Atorvastatin * Beta-kayla * Advised to quit smoking * Advised compliance with meds * Monitor labs Clinical Quality Measures AMI/AHF: ASA po Prior to arrival: Yes CLARISA HEREDIA MD FACP FAC CCDS Jan 22, 2019 09:32
[2019-01-22] MEDS ORDERED: PATIENT MAY USE OWN MEDS, ALL PO SCH (09:45)
[2019-01-22] MEDS ORDERED: ACETAMINOPHEN 325 MG TABLET PO PRN (09:45)
--- NOTE | 2019-01-22 10:35 | CARDIAC CATHETERIZATION ---
DATE OF SERVICE: 01/22/2019 CARDIAC CATHETERIZATION AND CARDIAC INTERVENTION REPORT The patient is a 63-year-old man who presented to the [facility] with crushing, severe chest pain, worst that he has ever had in his life. There was subtle electrocardiographic changes to suggest minimal ST elevation. The scenario was consistent with acute ST elevation myocardial infarction. We will advise transfer directly to our cardiac catheterization laboratory. The emergency room physician at [facility] spoke with the patient and the patient agreed to be transferred for cardiac catheterization and possible ad hoc coronary intervention. After the patient arrived to the cardiac catheterization laboratory, we confirmed this verbal consent with him. The procedure was then undertaken in an emergency manner. DESCRIPTION OF PROCEDURE: The right groin was prepared and draped in the usual sterile fashion. Intravenous heparin infusion was discontinued just prior to the insertion of the sheath. We used the Seldinger technique to advance a 6-Micronesian sheath in the right femoral artery. We used a 6-Micronesian JL4 guide catheter to carry out left coronary angiography. The left anterior descending artery was occluded in its mid portion at the site of a previously placed stent. To this, intervention was carried out as detailed below. Subsequently, we carried out angiography of the right coronary artery with a 6-Micronesian JR4 catheter. We carried out left heart catheterization, left ventricular angiography with a 6-Micronesian pigtail catheter. The catheter was pulled back and removed. Angiography of the right femoral artery was carried out through the sheath. Mynx was used to achieve hemostasis. PERCUTANEOUS INTERVENTION TO THE LEFT ANTERIOR DESCENDING: We used the 6-Micronesian JL4 guide catheter to advance a choice floppy wire. A double bolus of Integrilin was given. Integrilin infusion was continued throughout the procedure. He had received 5000 units of intravenous heparin in the emergency room at [facility] and was then on intravenous heparin, which was stopped just prior to the initiation of the angiography and interventional procedure. Integrilin infusion; however, was continued throughout the procedure. We were able to advance the ChoICE floppy wire across the complete occlusion in the mid left anterior descending artery with moderate difficulty. We carried out balloon angioplasty first with Emerge 1.5 x 20 mm balloon and then Emerge 2.5 x 15 mm balloon. This restored antegrade flow. Flow improved from SAI 0 to SAI 3. There was a small dissection just proximal to the proximal edge of previously placed stent. We placed Xience Brenda 2.5 x 12 mm stent that slightly overlaps the old stent. The stent was deployed at 20 atmospheres. Subsequent angiography revealed 0% residual stenosis. Flow throughout the vessel is SAI 3. The patient tolerated the procedure well. He had received oral aspirin in the emergency room at [facility]. At our cardiac catheterization laboratory, he received 180 mg of oral Brilinta. HEMODYNAMICS: Left ventricular end-diastolic pressure following coronary angiography and coronary intervention was 20 mmHg. There was no significant pressure gradient on pullback across the aortic valve. Ascending aortic pressure was 117/71 with a mean of 93 mmHg. LEFT VENTRICULAR ANGIOGRAPHY: Left ventricular angiography was carried out in the right anterior oblique projection. Global left ventricular systolic function is at the lower end of normal to mildly impaired. Left ventricular ejection fraction approximately 45 to 50%. There is mild anterolateral hypokinesis. CORONARY ANGIOGRAPHY: Left main coronary artery does not exhibit significant obstructive disease. Left anterior descending artery was occluded in its mid portion within a previously placed stent, which the patient stated had been placed in [place] many years ago. The details of this are not known. Successful balloon angioplasty and stenting was carried out to this with adventist of antegrade flow. There was a small dissection proximal to the proximal edge of the stent. An overlapping Brenda 2.5 x 12 mm stent was placed. Subsequently, there is 0% residual stenosis and flow throughout the vessel is SAI 3. There is a patent stent that is known to be Brenda 2.5 x 18 mm stent in the proximal portion of a large obtuse marginal. The right coronary artery is dominant and has mild plaques. CONCLUSIONS: 1. Coronary artery disease primarily consisting of mid vessel occlusion of the left anterior descending. This was within an old stent. Successful balloon angioplasty was carried out and we placed a proximal Brenda 2.5 x 12 mm stent, which slightly overlaps the old stent. Following this, there is 0% residual stenosis and flow throughout the vessel is normal. There is a patent stent that is known to be Brenda 2.5 x 18 mm, which is known to be in an obtuse marginal. Right coronary artery has mild plaques. 2. Mild impairment of global left ventricular systolic function with ejection fraction 45 to 50%. 3. Mild hypokinesis of the anterolateral wall. 4. Elevated left ventricular end-diastolic pressure. DISCUSSION AND RECOMMENDATIONS: We have advised him to quit smoking immediately and completely. We have advised compliance with dual antiplatelet therapy. Statins is being continued. Beta kayla has been added. MARK inhibitor can be considered if blood pressure so allows. There is no Absolute indication for MARK inhibitor or angiotensin receptor kayla, because the left ventricular ejection fraction is almost 50. Job ID: [id number] DocumentID: [id number] Dictated Date: 01/22/2019 10:02:30 Activities Leader Date: 01/22/2019 10:34:42 Dictated By: LESLEE CORDERO MD, MA, FACP, FACC, MTDD
[2019-01-22] MEDS: NS IV 1000 ML 1,000 ML IV SCH ×2 (10:44→23:18)
[2019-01-22] MEDS: TICAGRELOR 90 MG TABLET (BRILINTA) PO SCH (20:39)
[2019-01-23] VITALS (12 sets, daily range): BP systolic 102–130; BP diastolic 67–97
[2019-01-23 03:12] LABS: HEMOGLOBIN 15.4 G/DL (13.3-17.7); RED CELL DISTRIBUTION WIDTH 14.4 % (10.0-14.5); WHITE BLOOD COUNT 10.8 10^3/uL (4.3-11.0)
[2019-01-23 03:28] LABS: BUN/CREATININE RATIO 11; CALCIUM 8.9 MG/DL (8.5-10.1); CARBON DIOXIDE 22 MMOL/L (21-32); CHLORIDE 105 MMOL/L (98-107); CREATININE SERUM 0.83 MG/DL (0.60-1.30); GFR ESTIMATED > 60; GLUCOSE 126 MG/DL (70-105); POTASSIUM 3.8 MMOL/L (3.6-5.0); SODIUM 138 MMOL/L (135-145)
[2019-01-23] MEDS: TICAGRELOR 90 MG TABLET (BRILINTA) PO SCH ×2 (08:13→20:14)
[2019-01-23] MEDS: ASPIRIN 81 MG CHEW (CHILDREN'S ASA) PO SCH (08:13)
--- NOTE | 2019-01-23 10:34 | Progress Note - Cardiology ---
Cardiology SOAP Progress Note Subjective: No cp or palp or syncope or shortness of breath at rest Objective: I&O/Vital Signs 01/22/19 01/23/19 01/23/19 01/23/19 23:00 00:00 00:34 01:00 Pulse 111 B/P (MAP) 127/83 (98) 130/97 (108) 107/69 (82) O2 Delivery Nasal Cannula Nasal Cannula Nasal Cannula O2 Flow Rate 2.00 2.00 2.00 01/23/19 01/23/19 01/23/19 01/23/19 02:00 03:00 04:00 05:00 B/P (MAP) 104/67 (79) 113/85 (94) 103/70 (81) 106/77 (87) Pulse Ox 95 96 97 96 O2 Delivery Nasal Cannula Nasal Cannula Nasal Cannula Nasal Cannula O2 Flow Rate 2.00 2.00 2.00 2.00 01/23/19 01/23/19 01/23/19 01/23/19 06:00 07:00 08:00 08:14 Temp 36.6 Pulse 117 95 112 B/P (MAP) 107/82 (90) 105/74 (84) 105/74 (84) Pulse Ox 96 97 99 O2 Delivery Nasal Cannula Nasal Cannula Room Air O2 Flow Rate 2.00 2.00 01/23/19 08:30 O2 Delivery Room Air 01/23/19 00:00 Intake Total 500 ml Balance 500 ml Weight (Pounds): 155 Weight (Ounces): 8.0 Weight (Calculated Kilograms): 70.721257 Device Insertion Site: without hematoma Bruising: mild bruising Constitutional: AAO x 3, well-developed, well-nourished Respiratory: No accessory muscle use; other (good bilateral air entry) Cardiovascular: regular rate-rhythm, S1 and S2, systolic murmur (faint JANEL at card base) Gastrointestional: No tender; soft; No guarding, No rebound; audible bowel sounds Extremities: No clubbing, No cyanosis, No significant edema Neurologic/Psychiatric: oriented x 3, grossly intact, power is 5/5 both on sides Skin: No rash on exposed areas, No ulcerations on exposed areas Results/Procedures: Labs Laboratory Tests 01/23/19 02:45: White Blood Count 10.8, Red Blood Count 5.16, Hemoglobin 15.4, Hematocrit 45, Mean Corpuscular Volume 87, Mean Corpuscular Hemoglobin 30, Mean Corpuscular Hemoglobin Concent 34, Red Cell Distribution Width 14.4, Platelet Count 225, Mean Platelet Volume 12.0H, Sodium Level 138, Potassium Level 3.8, Chloride Level 105, Carbon Dioxide Level 22, Anion Gap 11, Blood Urea Nitrogen 9, Creatinine 0.83, Estimat Glomerular Filtration Rate > 60, BUN/Creatinine Ratio 11, Glucose Level 126H, Calcium Level 8.9 Laboratory Tests 01/22/19 06:54 01/23/19 02:45 A/P: Assessment: Acute STEMI on 01/22/19, treated primary PCI (see below) CAD. Cath of 01/22/19 showed occluded midvessel stent in LAD to which successful PCI was carried out (PTCA followed by proximal, overlapping stenting with Brenda 2.5 x 12); patent stent in a large OM (Brenda 2.5 x 18 in Mar 2018); mild disease in RCA, LVEDP 20 mmHg, LVEF 45-50% Chronic tobacco use H/o intermittent noncompliance with meds H/o hyperlipidemia, treated with atorvastatin Plan: * Continue current regimen * Echo * Transfer to cardiac stepdown floor * Advised to quit smoking * Advised compliance with meds * Monitor labs * Increase ambulation Clinical Quality Measures AMI/AHF: ASA po Prior to arrival: Yes LESLEE CORDERO MD FACP FAC CCDS Jan 23, 2019 10:34
[2019-01-23] MEDS: NS IV 1000 ML 1,000 ML IV SCH (13:05)
--- NOTE | 2019-01-23 13:13 | NUR ---
Initial visit: Pt is [place]. Offered active listening and compassionate presence. The pt said his family visited him yesterday, which he described as encouraging and meaningful. Timur with food service team member arrived during our visit. I noticed the pt's breakfast had not been touched, and asked if the pt was able to order other options. Timur respectfully shared that if the pt preferred something other than what was on the menu, it could be changed before the time of food service team member. Timur also said he would bring up the appropriate menu for the pt's diet.
--- NOTE | 2019-01-23 14:36 | NUR ---
PT TO ROOM 426 VIA AMBULATION AT 1325. PT TOLERATED WELL. THIS RN ASSESSED PT UPON ARRIVAL TO UNIT AND AGREES WITH CHILD NEUROLOGIST'S PREVIOUS ASSESSMENT.
[2019-01-24 00:15] VITALS: BP 100/58
[2019-01-24 04:00] VITALS: BP 95/56
[2019-01-24 08:47] VITALS: BP 109/75
[2019-01-24] MEDS: TICAGRELOR 90 MG TABLET (BRILINTA) PO SCH (09:36)
[2019-01-24] MEDS: ASPIRIN 81 MG CHEW (CHILDREN'S ASA) PO SCH (09:36)
[2019-01-24 12:00] VITALS: BP 103/57
[2019-01-24 15:36] VITALS: BP 104/75
[2019-01-24] MEDS ORDERED: METO-387 PO (15:40)
--- NOTE | 2019-01-24 15:41 | Discharge Inst-Cardiology ---
Discharge Inst-Cardiac Discharge Medications New Medications: Metoprolol Succinate (Metoprolol Succinate) 25 Mg Tab.er.24h 25 MG PO DAILY for 30 Days, #30 TAB 3 Refills Continued Medications: Aspirin (Aspirin EC) 81 Mg Tablet.dr 81 MG PO DAILY, #100 TAB 3 Refills Atorvastatin Calcium (Atorvastatin Calcium) 80 Mg Tablet 80 MG PO HS, #30 TAB 3 Refills [place] 3 Polyunsat Fatty Acids (Fish Oil 1,000 mg Capsule) 1,000 Mg Cap 1000 MG PO BID WITH MEALS, #100 CAP 3 Refills Pantoprazole Sodium (Pantoprazole Sodium) 40 Mg Tablet.dr 40 MG PO DAILY, #30 TAB 3 Refills Ticagrelor (Brilinta) 90 Mg Tablet 90 MG PO BID, #60 TAB 3 Refills Patient Instructions Patient Instructions: (has h/o COPD due to previous tobacco use) LESLEE CORDERO MD FACP FAC CCDS Jan 24, 2019 15:41
--- NOTE | 2019-01-24 15:42 | Discharge Inst-Post CATH ---
Discharge Inst-CATH/EP Post Cardiac Cath/EP D/C Inst Follow Up/Plan F/u with Dr Rahman in 1-2 weeks ACTIVITY * Go Home directly and rest. * Limit activity of the leg (or wrist if it was used) for 7 days including aerobics, swimming, jogging, bicycling, etc. * Restrict stair-climbing for 7 days if possible, if not, climb up with your n on-cath leg, then bring together on the same step. * Avoid lifting, pushing, pulling or excessive movement of the affected ex tremity for 7 days. * Customary sexual activity may be resumed after 2 days-use caution not to use a position that strains or causes pain to the affected extremity. * No driving for 24 hours. * NO SMOKING. * Avoid straining for bowel movements for 7 days. * Gentle walking on level ground is allowed. * Returning to work will depend on the type of procedure and the results. Your doctor will discuss this with you. CALL YOUR DOCTOR FOR ANY OF THE FOLLOWING: *If bleeding from the puncture site occurs- Apply gentle pressure to site with clean cloth and call your doctor or EMS. * If a knot or lump forms under the skin, increases in size, or causes pain. * If bruising appears to be worsening or moving further down your leg instead of disappearing. * Temperature above 101 F. CARE OF YOUR GROIN INCISION; * Bruising or purple discoloration of the skin near the puncture site is common. * You may shower only, no bathtub bathing for 5 days. Be careful to avoid slipping as your leg may feel stiff. * If a closure device was used on your femoral artery, please see the attached guide regarding care of the device and your leg. * Leave dressing on FOR 24 hours. CARE OF YOUR WRIST INCISION; * Bruising or purple discoloration of the skin near the puncture site is common. * You may shower. * DO NOT submerge wrist. * Leave dressing on FOR 24 hours. LESLEE CORDERO MD FACP [facility]S Jan 24, 2019 15:42
--- NOTE | 2019-01-24 15:47 | Progress Note - Cardiology ---
Cardiology SOAP Progress Note Subjective: No cp or palp or syncope or shortness of breath No groin or leg discomfort / discoloration Wishes to go home Objective: I&O/Vital Signs 01/24/19 01/24/19 01/24/19 01/24/19 04:00 07:00 08:00 08:47 Temp 36.8 35.9 Pulse 82 100 92 Resp 18 20 B/P (MAP) 95/56 (69) 109/75 (86) Pulse Ox 95 97 O2 Delivery Room Air Room Air Room Air 01/24/19 01/24/19 01/24/19 12:00 13:00 15:36 Temp 36.8 36.8 Pulse 71 86 90 Resp 16 16 B/P (MAP) 103/57 (72) 104/75 (85) Pulse Ox 96 99 O2 Delivery Room Air Room Air 01/24/19 00:00 Intake Total 1420 ml Balance 1420 ml Weight (Pounds): 155 Weight (Ounces): 8.0 Weight (Calculated Kilograms): 70.476404 Device Insertion Site: without hematoma Bruising: mild bruising Constitutional: AAO x 3, well-developed, well-nourished Respiratory: No accessory muscle use; other (good bilateral air entry) Cardiovascular: regular rate-rhythm, S1 and S2, systolic murmur (faint JANEL at card base) Gastrointestional: No tender; soft; No guarding, No rebound; audible bowel sounds Extremities: No clubbing, No cyanosis, No significant edema Neurologic/Psychiatric: oriented x 3, grossly intact, power is 5/5 both on sides Skin: No rash on exposed areas, No ulcerations on exposed areas Results/Procedures: Labs Laboratory Tests 01/24/19 05:25: Glucometer 111H Laboratory Tests 01/23/19 02:45 A/P: Assessment: Acute STEMI on 01/22/19, treated primary PCI (see below) CAD. Cath of 01/22/19 showed occluded midvessel stent in LAD to which successful PCI was carried out (PTCA followed by proximal, overlapping stenting with Brenda 2.5 x 12); patent stent in a large OM (Brenda 2.5 x 18 in Mar 2018); mild disease in RCA, LVEDP 20 mmHg, LVEF 45-50% Echo of 01/23/19: LVEF 45-50%, hypokinesis of apex, RVSP 16 mmHg Chronic tobacco use H/o intermittent noncompliance with meds H/o hyperlipidemia, treated with atorvastatin Impaired fasting glucose Plan: * Advised f/u with pcp regarding impaired fasting glucose * Advised f/u with Dr Rahman for cardiac issues * Advised to quit smoking * Advised compliance with meds Clinical Quality Measures AMI/AHF: ASA po Prior to arrival: Yes LESLEE CORDERO MD FACP [facility] Jan 24, 2019 15:47
--- NOTE | 2019-01-24 15:52 | Cardiology Discharge Summary ---
Diagnosis/Chief Complaint Date of Admission Jan 22, 2019 at 09:46 Date of Discharge 01/24/19 Admission Diagnosis Acute STEMI on 01/22/19, treated primary PCI (see below) Final/Discharge Diagnosis Acute STEMI on 01/22/19, treated primary PCI (see below) CAD. Cath of 01/22/19 showed occluded midvessel stent in LAD to which successful PCI was carried out (PTCA followed by proximal, overlapping stenting with Brenda 2.5 x 12); patent stent in a large OM (Brenda 2.5 x 18 in Mar 2018); mild disease in RCA, LVEDP 20 mmHg, LVEF 45-50% Echo of 01/23/19: LVEF 45-50%, hypokinesis of apex, RVSP 16 mmHg Chronic tobacco use H/o intermittent noncompliance with meds H/o hyperlipidemia, treated with atorvastatin Impaired fasting glucose Chief Complaint/HPI Chief Complaint/HPI CC: Severe, crushing chest pain HPI: 63 yo man who awoke with severe, crushing chest pain in the midsternum, feeling of extreme pressure, worst pain he has ever had. It was associated with diaphoresis, shortness of breath and a sense of impending doom. He went to the [facility] ER. Pain could not be controlled. ECG showed only subtle changes, but the clinical scenario was consistent with acute NM. The ER physician called us. We advised transfer directly to our card laborer/grade check if he was willing to undergo cath and probable intervention. The ER physician spoke with the pt. Mr Vergara consented to transfer to our laborer/grade check for cath and probable PCI. He was transferred to us. We spoke with him again regarding our plans. He understood and provided oral consent. Procedure was undertaken immediately. The LAD was completely occluded within a mid-vessel stent. Emergency PCI was carried out with good results. Currently, he feels well and does not report any symptoms (after PCI) See our progress note of today's date (01/24/19) for condition at discharge Risk factor mod reviewed Meds called to his pharmacy by electronic prescriptions. Advised compliance with meds Groin dressing removed F/u with Dr Rahman arranged Time spent: 3:10 - 3:50 Discharge Summary Procedures None. Discussion & Recommendations Home Medications Reviewed patient Home Medication Reconciliation performed by pharmacy medication reconciliations electrical/instrument technician and/or nursing. Patients Allergies have been reviewed. Discharge Home Medications: Reviewed and agree with Discharge Medication list on patient's Discharge Instruction sheet Instructions to patient/family F/u with Dr Rahman in 1-2 weeks Clinical Quality Measures AMI/AHF: ASA po Prior to arrival: Yes LESLEE CORDERO MD FACP [facility] Jan 24, 2019 15:52
[2019-01-24 16:55] VITALS: BP 104/75
== END 2019-01-24 16:15 | disposition home or self-care (01) | DRG 247 ==
LOC: ER FS 06:41 → CATH 08:08 → ICU 09:46 → 4TH 01-23 13:48
PROVIDERS: ADMIT Internal Medicine Cardiovascular Disease; ATTEND Internal Medicine Cardiovascular Disease
PROC: 027034Z Dilation of Coronary Artery, One Artery with Drug-eluting Intraluminal Device, Percutaneous Approach (ICD-10-PCS; principal; 2019-01-22)
PROC: 4A023N7 Measurement of Cardiac Sampling and Pressure, Left Heart, Percutaneous Approach (ICD-10-PCS; 2019-01-22)
PROC: B2111ZZ Fluoroscopy of Multiple Coronary Arteries using Low Osmolar Contrast (ICD-10-PCS; 2019-01-22)
PROC: B2151ZZ Fluoroscopy of Left Heart using Low Osmolar Contrast (ICD-10-PCS; 2019-01-22)
PROC: B41F1ZZ Fluoroscopy of Right Lower Extremity Arteries using Low Osmolar Contrast (ICD-10-PCS; 2019-01-22)
DX: I21.4 Non-ST elevation (NSTEMI) myocardial infarction (principal); T82.855A Stenosis of coronary artery stent, initial encounter; I25.10 Atherosclerotic heart disease of native coronary artery without angina pectoris; E78.5 Hyperlipidemia, unspecified; R73.01 Impaired fasting glucose; F17.210 Nicotine dependence, cigarettes, uncomplicated; M19.91 Primary osteoarthritis, unspecified site; H91.90 Unspecified hearing loss, unspecified ear; M54.9 Dorsalgia, unspecified; Z95.5 Presence of coronary angioplasty implant and graft; Z91.19 Patient's noncompliance with other medical treatment and regimen
CPT/HCPCS: 36415; 71045; 80048; 80053; 82962; 83735; 83874; 84484; 85025; 85027; 85610; 85730; 93005; 93041; 93306; 93458

== ENCOUNTER 2019-10-19 16:49 | Emergency (ER) | payer BC ==
[~2019-10-19 16:49] MED LIST changes: +MTP25TSR PO
[2019-10-19] MEDS ORDERED: TETANUS,DIPTH,PERTUSS P/F (BOOSTRIX) 0.5 ML VIAL IM ONE (17:15)
--- NOTE | 2019-10-19 17:18 | ED Upper Extremity ---
General Chief Complaint: Laceration Stated Complaint: THUMB LACERATION Source: patient History of Present Illness Date Seen by Provider: Oct 19, 2019 Time Seen by Provider: 17:00 Initial Comments Patient is a 64-year-old right-handed male who presents with our evaluation of left thumb laceration. Patient lacerated the extensor side surface of his left thumb 24 hours ago while putting together a toy. Bleeding was initially controlled, however, the patient accidentally his thumb 1 hour ago causing it to rebleed. Patient reports good range of motion. Date of last tetanus is unknown. Patient is on anticoagulation therapy Onset: just prior to arrival Pain/Injury Location: left thumb Method of Injury: incised Allergies and Home Medications Allergies Coded Allergies: No Known Drug Allergies (Unverified , 03/29/18) Home Medications Aspirin 81 Mg Tablet.dr, 81 MG PO DAILY Prescribed by: AUDIE WHALEY on 03/30/18900 Atorvastatin Calcium 80 Mg Tablet, 80 MG PO HS Prescribed by: AUDIE WHALEY on 03/30/18900 Metoprolol Succinate 25 Mg Tab.er.24h, 25 MG PO DAILY Prescribed by: LESLEE CORDERO on 01/24/19 1540 [place] 3 Polyunsat Fatty Acids 1,000 Mg Cap, 1,000 MG PO BID WITH MEALS Prescribed by: AUDIE WHALEY on 03/30/18900 Pantoprazole Sodium 40 Mg Tablet.dr, 40 MG PO DAILY Prescribed by: AUDIE WHALEY on 03/30/18900 Ticagrelor 90 Mg Tablet, 90 MG PO BID Prescribed by: AUDIE WHALEY on 03/30/18900 Patient Home Medication List Home Medication List Reviewed: Yes Review of Systems Constitutional: no symptoms reported EENTM: no symptoms reported Respiratory: no symptoms reported Cardiovascular: no symptoms reported Gastrointestinal: no symptoms reported Genitourinary: no symptoms reported Musculoskeletal: no symptoms reported Skin: see HPI, other Psychiatric/Neurological: No Symptoms Reported Past [id number] Hx Past Med/Social Hx: Reviewed Nursing Past Med/Soc Hx Patient Social History Alcohol Use: Denies Use Recreational Drug Use: No Smoking Status: Current Everyday Smoker Type Used: Cigarettes 2nd Hand Smoke Exposure: No Recent Foreign Travel: No Contact w/Someone Who Travel: No Recent Hopitalizations: No Immunizations Up To Date PED Vaccines UTD: No Seasonal Allergies Seasonal Allergies: No Past Medical History Surgeries: Yes Coronary Stent Respiratory: No Cardiac: Yes Coronary Artery Disease Neurological: No Genitourinary: No Gastrointestinal: No Musculoskeletal: No Arthritis, Chronic Back Pain Endocrine: No HEENT: No Eye Injury Hearing Impairment: Hard of Hearing Cancer: No Psychosocial: No Integumentary: No Blood Disorders: No Family Medical History Cardiovascular disease 19 FATHER 19 MOTHER grandfather grandfather Physical Exam Vital Signs Capillary Refill : Height, Weight, BMI Height: 5'9.00" Weight: 155lbs. 8.0oz. 70.372481lw; 22.00 BMI Method: General Appearance: WD/WN HEENT: PERRL/EOMI Hand: Left (2 cm superficial oblique laceration over extensor surface of left thumb. Bleeding is controlled, wound is clean, range of motion, motor function and sensation are intact.) Skin: other (2 cm superfical oblique laceration, extensor surface of L thumb. No join involvement. Bleeding controlled. Wound clear, ROM, motor fxn and se nsation intact. ) Progress/Results/Core Measures Results/Orders My Orders Orders - SUNITA GRIMMtJas([facility]),Tet Adult ([facility] (10/19/19 17:15) Departure Communication (Admissions) Tetanus updated. Wound is Steri-Stripped and bandaged. Typical home care instructions provided. Return precautions reviewed Impression Primary Impression: Thumb laceration Disposition: HOME, SELF-CARE Condition: Stable Departure-Patient Inst. Referrals: LASHAUN HAUSER MD (PCP/Family) Primary Care Physician Patient Instructions: Wound Care Add. Discharge Instructions: Please keep wound clean and covered and dry. Remove bandage in 3 days. Return to ED if signs of infection All discharge instructions reviewed with patient and/or family. Voiced unders tanding. SUNITA GRIMM DO Oct 19, 2019 17:18
[2019-10-19 17:50] VITALS: BP 130/95
--- OUTSIDE RECORDS SUMMARY | 2019-10-19 19:17 | XMS REPORT | Continuity of Care Document ---
Demographics x Preferred Language Unknown Marital Status Unknown [place] Affiliation Unknown Race Unknown Ethnic Group Unknown Author Organization Unknown Address Unknown Phone Unavailable Allergies Active Description Code Type Severity Reaction Onset Reported/Identified Relationship to Patient Clinical Status Yes No Known Drug Allergies [id number] Drug Allergy Unknown N/A 03/29/2018 Medications There is no data. Problems Date Dx Coded Attending Type Code Diagnosis Diagnosed By 03/30/2018 AUDIE WHALEY MD, Ot E78. 5 HYPERLIPIDEMIA, UNSPECIFIED 03/30/2018 AUDIE WHALEY MD Ot F17.200 NICOTINE DEPENDENCE, UNSPECIFIED, UNCOMP 03/30/2018 AUDIE WHALEY MD Ot I10 ESSENTIAL (PRIMARY) HYPERTENSION 03/30/2018 AUDIE WHALEY MD Ot I21. 4 NON-ST ELEVATION (NSTEMI) MYOCARDIAL INF 03/30/2018 AUDIE WHALEY MD Ot I25.110 ATHSCL HEART DISEASE OF [place] COR ART W 03/30/2018 AUDIE WHALEY MD Ot I25. 2 OLD MYOCARDIAL INFARCTION 03/30/2018 AUDIE WHALEY MD Ot I44. 1 ATRIOVENTRICULAR BLOCK, SECOND DEGREE 03/30/2018 AUDIE WHALEY MD Ot Z91. 14 PATIENT'S OTHER NONCOMPLIANCE WITH MEDIC 03/30/2018 AUDIE WHALEY MD Ot Z95. 5 PRESENCE OF CORONARY ANGIOPLASTY IMPLANT 12/02/2018 AUDIE WHALEY MD Ot E78. 2 MIXED HYPERLIPIDEMIA 12/02/2018 AUDIE WHALEY MD Ot I25. 10 ATHSCL HEART DISEASE OF [place] CORONARY 12/02/2018 AUDIE WHALEY MD Ot Z72. 0 TOBACCO USE 12/12/2018 AUDIE WHALEY MD Ot E78. 2 MIXED HYPERLIPIDEMIA 12/12/2018 AUDIE WHALEY MD Ot I25. 10 ATHSCL HEART DISEASE OF [place] CORONARY 12/12/2018 AUDIE WHALEY MD Ot Z72. 0 TOBACCO USE 12/12/2018 AUDIE WHALEY MD Ot E78. 2 MIXED HYPERLIPIDEMIA 12/12/2018 AUDIE WHALEY MD Ot I25. 10 ATHSCL HEART DISEASE OF [place] CORONARY 12/12/2018 AUDIE WHALEY MD Ot Z72. 0 TOBACCO USE 12/29/2018 AUDIE WHALEY MD Ot E78. 2 MIXED HYPERLIPIDEMIA 12/29/2018 AUDIE WHALEY MD Ot I25. 10 ATHSCL HEART DISEASE OF [place] CORONARY 12/29/2018 AUDIE WHALEY MD Ot Z72. 0 TOBACCO USE 01/24/2019 CONSUELO VARGASC, ALI FACP CCDS Ot E78.5 HYPERLIPIDEMIA, UNSPECIFIED 01/24/2019 CONSUELO VARGASC, ALI FACP CCDS Ot F17.210 NICOTINE DEPENDENCE, CIGARETTES, UNCOMPL 01/24/2019 CONSUELO JOHN FACC, ALI FACP CCDS Ot H91.90 UNSPECIFIED HEARING LOSS, UNSPECIFIED EA 01/24/2019 CONSUELO VARGASC, ALI FACP CCDS Ot I21.4 NON-ST ELEVATION (NSTEMI) MYOCARDIAL INF 01/24/2019 CONSUELO JOHN FACC, ALI FACP CCDS Ot I25.10 ATHSCL HEART DISEASE OF [place] CORONARY 01/24/2019 CONSUELO JOHN FACC, ALI FACP CCDS Ot M19.91 PRIMARY OSTEOARTHRITIS, UNSPECIFIED SITE 01/24/2019 CONSUELO JOHN FACC, ALI FACP CCDS Ot M54.9 DORSALGIA, UNSPECIFIED 01/24/2019 CONSUELO JOHN FACC, ALI FACP CCDS Ot R73.01 IMPAIRED FASTING GLUCOSE 01/24/2019 CONSUELO JOHN FACC, ALI FACP CCDS Ot T82.855A STENOSIS OF CORONARY ARTERY STENT, INITI 01/24/2019 CONSUELO VARGSAC, ALI FACP CCDS Ot Z91.19 PATIENT'S NONCOMPLIANCE W [facility] 01/24/2019 CONSUELO VARGASC, ALI FACP CCDS Ot Z95.5 PRESENCE OF CORONARY ANGIOPLASTY IMPLANT 10/19/2019 AUDIE WHALEY MD Ot E78. 2 MIXED HYPERLIPIDEMIA 10/19/2019 AUDIE WHALEY MD Ot I25. 10 ATHSCL HEART DISEASE OF [place] CORONARY 10/19/2019 AUDIE WHALEY MD Ot Z72. 0 TOBACCO USE 10/19/2019 AUDIE WHALEY MD Ot E78. 2 MIXED HYPERLIPIDEMIA 10/19/2019 AUDIE WHALEY MD Ot I25. 10 ATHSCL HEART DISEASE OF [place] CORONARY 10/19/2019 AUDIE WHALEY MD J Ot Z72. 0 TOBACCO USE Procedures Code Description Performed By Per formed On [id number] DI LATION OF 1 COR ART WITH DRUG-ELUT INT 03/29/2018 [id number] ME ASURE OF CARDIAC SAMPL PRESSURE, L H 03/29/2018 [id number] FL UOROSCOPY OF MULT COR ART USING L OSM 03/29/2018 [id number] FL UOROSCOPY OF LEFT HEART USING LOW OSMO 03/29/2018 [id number] DI LATION OF 1 COR ART WITH DRUG-ELUT INT 01/22/2019 [id number] ME ASURE OF CARDIAC SAMPL PRESSURE, L H 01/22/2019 [id number] FL UOROSCOPY OF MULT COR ART USING L OSM 01/22/2019 [id number] FL UOROSCOPY OF LEFT HEART USING LOW OSMO 01/22/2019 [id number] FL UOROSCOPY OF R LOW EXTREM ART USING L 01/22/2019 Results Test Result Range Methicillin resistant Staphylococcus aur eus (MRSA) screening culture - 03/29/18 06:05 Methicillin resistant Staphylococcus aureus (MRSA) scr eening culture NEG NRG Complete blood count (CBC) with automate d white blood cell (WBC) differential - 03/29/18 06:35 Blood leukocytes automated count (number/volume) 11.7 10*3/uL 4.3-11.0 Blood erythrocytes automated count (number/volume) 4.93 10*6/uL 4.35-5.85 Venous blood hemoglobin measurement (mass/volume) 15.0 g/dL 13.3-17.7 Blood hematocrit (volume fraction) 43 % 40-54 Automated erythrocyte mean corpuscular volume 87 [ foz_us] 80-99 Automated erythrocyte mean corpuscular h emoglobin (mass per erythrocyte) 30 pg 25-34 Automated erythrocyte mean corpuscular h emoglobin concentration measurement (mass/volume) 35 g/dL 32-36 Automated erythrocyte distribution width ratio 14. 0 % 10.0- 14.5 Automated blood platelet count (count/volume) 203 10*3/uL 130-400 Automated blood platelet mean volume measurement 11.5 [foz_us] 7.4-10.4 Automated blood neutrophils/100 leukocytes 79 % 42-75 Automated blood lymphocytes/100 leukocytes 12 % 12-44 Blood monocytes/100 leukocytes 8 % 0-12 Automated blood eosinophils/100 leukocytes 1 % 0-10 Automated blood basophils/100 leukocytes 0 % 0-10 Blood neutrophils automated count (number/volume) 9.3 10*3 1.8-7.8 Blood lymphocytes automated count (number/volume) 1.4 10*3 1.0-4.0 Blood monocytes automated count (number/volume) 0. 9 10*3 0.0-1.0 Automated eosinophil count 0.1 10*3/uL 0 .0-0.3 Automated blood basophil count (count/volume) 0.0 10*3/uL 0.0-0.1 Comprehensive metabolic panel - 03/29/18 06:35 Serum or plasma sodium measurement (moles/volume) 140 mmol/L 135-145 Serum or plasma potassium measurement (moles/volume) 3.8 mmol/L 3.6-5.0 Serum or plasma chloride measurement (moles/volume) 109 mmol/L 98-107 Carbon dioxide 20 mmol/L 21-32 Serum or plasma anion gap determination (moles/volume) 11 mmol/L 5-14 Serum or plasma urea nitrogen measurement (mass/volume ) 14 mg/dL 7-18 Serum or plasma creatinine measurement (mass/volume) 0.80 mg/dL 0.60-1.30 Serum or plasma urea nitrogen/creatinine mass ratio 18 NRG Serum or plasma creatinine measurement w ith calculation of estimated glomerular filtration rate > NRG Serum or plasma glucose measurement (mass/volume) 102 mg/dL 70-105 Serum or plasma calcium measurement (mass/volume) 8.8 mg/dL 8.5-10.1 Serum or plasma total bilirubin measurement (mass/volu me) 0.4 mg/dL 0.1-1.0 Serum or plasma alkaline phosphatase shahbaz surement (enzymatic activity/volume) 69 U/L 40-136 Serum or plasma aspartate aminotransfera se measurement (enzymatic activity/volume) 18 U/L 5-34 Serum or plasma alanine aminotransferase measurement (enzymatic activity/volume) 17 U/L 0-55 Serum or plasma protein measurement (mass/volume) 6.4 g/dL 6.4-8.2 Serum or plasma albumin measurement (mass/volume) 4.0 g/dL 3.2-4.5 CALCIUM CORRECTED 8.8 mg/dL 8.5-10.1 Serum or plasma troponin i.cardiac measu rement (mass/volume) - 03/29/18 06:35 Serum or plasma troponin i.cardiac measurement (mass/v olume) < ng/mL <0.30 Myoglobin, serum - 03/29/18 06:35 Myoglobin, serum 226.7 ng/mL 10.0-92.0 PT panel in platelet poor plasma by coag ulation assay - 03/29/18 06:35 Prothrombin time (PT) in platelet poor plasma by coagu lation assay 14.2 s 12.2-14.7 INR in platelet poor plasma or blood by coagulation as say 1.1 0.8-1.4 Activated partial thromboplastin time (a PTT) in platelet poor plasma bycoagulation assay - 03/29/18 06:35 Activated partial thromboplastin time (a PTT) in platelet poor plasma bycoagulation assay 34 s 24-35 Automated blood complete blood count (he mogram) panel - 03/30/18 03:39 Blood leukocytes automated count (number/volume) 8.5 10*3/uL 4.3-11.0 Blood erythrocytes automated count (number/volume) 4.91 10*6/uL 4.35-5.85 Venous blood hemoglobin measurement (mass/volume) 14.9 g/dL 13.3-17.7 Blood hematocrit (volume fraction) 43 % 40-54 Automated erythrocyte mean corpuscular volume 88 [ foz_us] 80-99 Automated erythrocyte mean corpuscular h emoglobin (mass per erythrocyte) 30 pg 25-34 Automated erythrocyte mean corpuscular h emoglobin concentration measurement (mass/volume) 35 g/dL 32-36 Automated erythrocyte distribution width ratio 14. 3 % 10.0- 14.5 Automated blood platelet count (count/volume) 174 10*3/uL 130-400 Automated blood platelet mean volume measurement 11.7 [foz_us] 7.4-10.4 Whole blood basic metabolic panel - 03/09 06/23 03:39 Serum or plasma sodium measurement (moles/volume) 140 mmol/L 135-145 Serum or plasma potassium measurement (moles/volume) 4.1 mmol/L 3.6-5.0 Serum or plasma chloride measurement (moles/volume) 111 mmol/L 98-107 Carbon dioxide 19 mmol/L 21-32 Serum or plasma anion gap determination (moles/volume) 10 mmol/L 5-14 Serum or plasma urea nitrogen measurement (mass/volume ) 10 mg/dL 7-18 Serum or plasma creatinine measurement (mass/volume) 0.79 mg/dL 0.60-1.30 Serum or plasma urea nitrogen/creatinine mass ratio 13 NRG Serum or plasma creatinine measurement w ith calculation of estimated glomerular filtration rate > NRG Serum or plasma glucose measurement (mass/volume) 95 mg/dL 70-105 Serum or plasma calcium measurement (mass/volume) 9.0 mg/dL 8.5-10.1 Serum or plasma troponin i.cardiac measu rement (mass/volume) - 03/30/18 03:39 Serum or plasma troponin i.cardiac measurement (mass/v olume) 18.90 ng/mL <0.30 CBC - 09/25/18 09:39 WHITE BLOOD CELL COUNT 6.2 Thousand/uL 3 .8-10.8 RED BLOOD CELL COUNT 5.46 Million/uL 4.2 0-5.80 HEMOGLOBIN 16.5 g/dL 13.2-17.1 HEMATOCRIT 50.2 % 38.5-50.0 MCV 91.9 fL 80.0-100.0 MCH 30.2 pg 27.0-33.0 MCHC 32.9 g/dL 32.0-36.0 RDW 14.0 % 11.0-15.0 PLATELET COUNT 228 Thousand/uL 140-400 MPV 11.6 fL 7.5-12.5 ABSOLUTE NEUTROPHILS 3261 cells/uL 1500- 7800 ABSOLUTE LYMPHOCYTES 1755 cells/uL 850-3 900 ABSOLUTE MONOCYTES 732 cells/uL 200-950 ABSOLUTE EOSINOPHILS 372 cells/uL 15-500 ABSOLUTE BASOPHILS 81 cells/uL 0-200 NEUTROPHILS 52.6 % NRG LYMPHOCYTES 28.3 % NRG MONOCYTES 11.8 % NRG EOSINOPHILS 6.0 % NRG BASOPHILS 1.3 % NRG CBC - 01/19/19 09:57 WHITE BLOOD CELL COUNT 7.2 Thousand/uL 3 .8-10.8 RED BLOOD CELL COUNT 5.15 Million/uL 4.2 0-5.80 HEMOGLOBIN 15.7 g/dL 13.2-17.1 HEMATOCRIT 47.5 % 38.5-50.0 MCV 92.2 fL 80.0-100.0 MCH 30.5 pg 27.0-33.0 MCHC 33.1 g/dL 32.0-36.0 RDW 13.6 % 11.0-15.0 PLATELET COUNT 218 Thousand/uL 140-400 MPV 11.9 fL 7.5-12.5 ABSOLUTE NEUTROPHILS 4558 cells/uL 1500- 7800 ABSOLUTE LYMPHOCYTES 1505 cells/uL 850-3 900 ABSOLUTE MONOCYTES 749 cells/uL 200-950 ABSOLUTE EOSINOPHILS 331 cells/uL 15-500 ABSOLUTE BASOPHILS 58 cells/uL 0-200 NEUTROPHILS 63.3 % NRG LYMPHOCYTES 20.9 % NRG MONOCYTES 10.4 % NRG EOSINOPHILS 4.6 % NRG BASOPHILS 0.8 % NRG Complete blood count (CBC) with automate d white blood cell (WBC) differential - 01/22/19 06:54 Blood leukocytes automated count (number/volume) 9.0 10*3/uL 4.3-11.0 Blood erythrocytes automated count (number/volume) 5.22 10*6/uL 4.35-5.85 Venous blood hemoglobin measurement (mass/volume) 15.7 g/dL 13.3-17.7 Blood hematocrit (volume fraction) 46 % 40-54 Automated erythrocyte mean corpuscular volume 88 [ foz_us] 80-99 Automated erythrocyte mean corpuscular h emoglobin (mass per erythrocyte) 30 pg 25-34 Automated erythrocyte mean corpuscular h emoglobin concentration measurement (mass/volume) 34 g/dL 32-36 Automated erythrocyte distribution width ratio 13. 4 % 10.0- 14.5 Automated blood platelet count (count/volume) 268 10*3/uL 130-400 Automated blood platelet mean volume measurement 11.5 [foz_us] 7.4-10.4 Automated blood neutrophils/100 leukocytes 48 % 42-75 Automated blood lymphocytes/100 leukocytes 33 % 12-44 Blood monocytes/100 leukocytes 14 % 0-12 Automated blood eosinophils/100 leukocytes 4 % 0-10 Automated blood basophils/100 leukocytes 1 % 0-10 Blood neutrophils automated count (number/volume) 4.4 10*3 1.8-7.8 Blood lymphocytes automated count (number/volume) 3.0 10*3 1.0-4.0 Blood monocytes automated count (number/volume) 1. 3 10*3 0.0-1.0 Automated eosinophil count 0.3 10*3/uL 0 .0-0.3 Automated blood basophil count (count/volume) 0.1 10*3/uL 0.0-0.1 Comprehensive metabolic panel - 01/22/19 06:54 Serum or plasma sodium measurement (moles/volume) 142 mmol/L 135-145 Serum or plasma potassium measurement (moles/volume) 4.0 mmol/L 3.6-5.0 Serum or plasma chloride measurement (moles/volume) 107 mmol/L 98-107 Carbon dioxide 23 mmol/L 21-32 Serum or plasma anion gap determination (moles/volume) 12 mmol/L 5-14 Serum or plasma urea nitrogen measurement (mass/volume ) 17 mg/dL 7-18 Serum or plasma creatinine measurement (mass/volume) 0.86 mg/dL 0.60-1.30 Serum or plasma urea nitrogen/creatinine mass ratio 20 NRG Serum or plasma creatinine measurement w ith calculation of estimated glomerular filtration rate > NRG Serum or plasma glucose measurement (mass/volume) 96 mg/dL 70-105 Serum or plasma calcium measurement (mass/volume) 9.4 mg/dL 8.5-10.1 Serum or plasma total bilirubin measurement (mass/volu me) 0.2 mg/dL 0.1-1.0 Serum or plasma alkaline phosphatase shahbaz surement (enzymatic activity/volume) 80 U/L 40-136 Serum or plasma aspartate aminotransfera se measurement (enzymatic activity/volume) 13 U/L 5-34 Serum or plasma alanine aminotransferase measurement (enzymatic activity/volume) 15 U/L 0-55 Serum or plasma protein measurement (mass/volume) 6.7 g/dL 6.4-8.2 Serum or plasma albumin measurement (mass/volume) 4.2 g/dL 3.2-4.5 CALCIUM CORRECTED 9.2 mg/dL 8.5-10.1 Magnesium - 01/22/19 06:54 Magnesium 2.1 mg/dL 1.6-2.4 Myoglobin, serum - 01/22/19 06:54 Myoglobin, serum 40.5 ng/mL 10.0-92.0 PT panel in platelet poor plasma by coag ulation assay - 01/22/19 06:54 Prothrombin time (PT) in platelet poor plasma by coagu lation assay 14.5 s 12.2-14.7 INR in platelet poor plasma or blood by coagulation as say 1.1 0.8-1.4 Activated partial thromboplastin time (a PTT) in platelet poor plasma bycoagulation assay - 01/22/19 06:54 Activated partial thromboplastin time (a PTT) in platelet poor plasma bycoagulation assay 32 s 24-35 TROPONIN I FS - 01/22/19 06:54 TROPONIN I FS 0.34 ng/mL <0.30 Automated blood complete blood count (he mogram) panel - 01/23/19 02:45 Blood leukocytes automated count (number/volume) 10.8 10*3/uL 4.3-11.0 Blood erythrocytes automated count (number/volume) 5.16 10*6/uL 4.35-5.85 Venous blood hemoglobin measurement (mass/volume) 15.4 g/dL 13.3-17.7 Blood hematocrit (volume fraction) 45 % 40-54 Automated erythrocyte mean corpuscular volume 87 [ foz_us] 80-99 Automated erythrocyte mean corpuscular h emoglobin (mass per erythrocyte) 30 pg 25-34 Automated erythrocyte mean corpuscular h emoglobin concentration measurement (mass/volume) 34 g/dL 32-36 Automated erythrocyte distribution width ratio 14. 4 % 10.0- 14.5 Automated blood platelet count (count/volume) 225 10*3/uL 130-400 Automated blood platelet mean volume measurement 12.0 [foz_us] 7.4-10.4 Whole blood basic metabolic panel - 01/06 11/24 02:45 Serum or plasma sodium measurement (moles/volume) 138 mmol/L 135-145 Serum or plasma potassium measurement (moles/volume) 3.8 mmol/L 3.6-5.0 Serum or plasma chloride measurement (moles/volume) 105 mmol/L 98-107 Carbon dioxide 22 mmol/L 21-32 Serum or plasma anion gap determination (moles/volume) 11 mmol/L 5-14 Serum or plasma urea nitrogen measurement (mass/volume ) 9 mg/dL 7-18 Serum or plasma creatinine measurement (mass/volume) 0.83 mg/dL 0.60-1.30 Serum or plasma urea nitrogen/creatinine mass ratio 11 NRG Serum or plasma creatinine measurement w ith calculation of estimated glomerular filtration rate > NRG Serum or plasma glucose measurement (mass/volume) 126 mg/dL 70-105 Serum or plasma calcium measurement (mass/volume) 8.9 mg/dL 8.5-10.1 Capillary blood glucose measurement by g lucometer (mass/volume) - 01/24/19 05:25 Capillary blood glucose measurement by glucometer (mas s/volume) 111 mg/dL 70-110 LIPID PANEL - 09/23/19 08:37 CHOLESTEROL, TOTAL 107 mg/dL <200 HDL CHOLESTEROL 33 mg/dL > OR = 40 TRIGLYCERIDES 154 mg/dL <150 LDL-CHOLESTEROL 50 mg/dL (calc) NRG CHOL/HDLC RATIO 3.2 (calc) <5.0 NON HDL CHOLESTEROL 74 mg/dL (calc) <130 CMP - 09/23/19 08:37 GLUCOSE 80 mg/dL 65-99 UREA NITROGEN (BUN) 11 mg/dL 7-25 CREATININE 0.89 mg/dL 0.70-1.25 eGFR NON-AFR. [place] 90 mL/min/1.73m2 > OR = 60 eGFR 104 mL/min/1.73m2 > OR = 60 BUN/CREATININE RATIO NOT APPLICABLE (calc) 6-22 SODIUM 140 mmol/L 135-146 POTASSIUM 4.5 mmol/L 3.5-5.3 CHLORIDE 108 mmol/L 98-110 CARBON DIOXIDE 24 mmol/L 20-32 CALCIUM 8.8 mg/dL 8.6-10.3 PROTEIN, TOTAL 6.1 g/dL 6.1-8.1 ALBUMIN 3.7 g/dL 3.6-5.1 GLOBULIN 2.4 g/dL (calc) 1.9-3.7 ALBUMIN/GLOBULIN RATIO 1.5 (calc) 1.0-2. 5 BILIRUBIN, TOTAL 0.5 mg/dL 0.2-1.2 ALKALINE PHOSPHATASE 80 U/L 35-144 AST 13 U/L 10-35 ALT 18 U/L 9-46 CBC - 09/23/19 08:37 WHITE BLOOD CELL COUNT 7.8 Thousand/uL 3 .8-10.8 RED BLOOD CELL COUNT 5.21 Million/uL 4.2 0-5.80 HEMOGLOBIN 15.7 g/dL 13.2-17.1 HEMATOCRIT 48.4 % 38.5-50.0 MCV 92.9 fL 80.0-100.0 MCH 30.1 pg 27.0-33.0 MCHC 32.4 g/dL 32.0-36.0 RDW 13.5 % 11.0-15.0 PLATELET COUNT 240 Thousand/uL 140-400 MPV 11.2 fL 7.5-12.5 ABSOLUTE NEUTROPHILS 4836 cells/uL 1500- 7800 ABSOLUTE LYMPHOCYTES 1661 cells/uL 850-3 900 ABSOLUTE MONOCYTES 827 cells/uL 200-950 ABSOLUTE EOSINOPHILS 374 cells/uL 15-500 ABSOLUTE BASOPHILS 101 cells/uL 0-200 NEUTROPHILS 62 % NRG LYMPHOCYTES 21.3 % NRG MONOCYTES 10.6 % NRG EOSINOPHILS 4.8 % NRG BASOPHILS 1.3 % NRG COVID-19 ([facility]) - 09/30/19 11:00 Encounters ACCT No. Visit Date/Time Discharge Status Pt. Type Provider Facility Loc./Unit Complaint [id number] 10/07/2019 15:00:00 10/07/2019 23:59: 59 [facility] [id number] 09/30/2019 09:30:00 Document Registration [id number] 09/23/2019 08:30:00 Document Registration [id number] 01/19/2019 10:15:00 Document Registration [id number] 09/25/2018 09:00:00 Document Registration [id number] 01/22/2019 09:46:00 16:15:00 DIS Inpatient CONSUELO JOHN FACC, LESLEE GU CCD S [facility] 4TH CHEST PAIN [id number] 12/10/2018 06:55:00 23:59:59 CLS Outpatient AUDIE WHALEY MD [facility] CARD CAD [id number] 11/28/2018 10:33:00 23:59:59 CLS Outpatient AUDIE WHALEY MD [facility] CARD CAD [id number] 03/29/2018 06:05:00 10:30:00 DIS Inpatient AUDIE WHALEY MD [facility] ICU UNSTABLE ANGINA [id number] 10/19/2019 16:50:[address] Emergency GRIMM SUNITA LYONS [facility] ER FS THUMB LACERATION
== END 2019-10-19 17:50 | disposition home or self-care (01) ==
LOC: EDUNIT# 16:49 → ER FS 16:50
DX: S61.012A Laceration without foreign body of left thumb without damage to nail, initial encounter (principal); I25.10 Atherosclerotic heart disease of native coronary artery without angina pectoris; M54.9 Dorsalgia, unspecified; G89.29 Other chronic pain; Z82.49 Family history of ischemic heart disease and other diseases of the circulatory system; F17.210 Nicotine dependence, cigarettes, uncomplicated; Z95.5 Presence of coronary angioplasty implant and graft; Z79.82 Long term (current) use of aspirin; W26.8XXA Contact with other sharp object(s), not elsewhere classified, initial encounter
CPT/HCPCS: 90715

== ENCOUNTER → 2019-11-09 | Outpatient (CLI) | payer BC ==
[2019-11-09 10:31] LABS: ALANINE AMINOTRANSFERASE 19 U/L (0-55); ALBUMIN 3.9 GM/DL (3.2-4.5); ALKALINE PHOSPHATASE 78 U/L (40-136); BILIRUBIN,TOTAL 0.4 MG/DL (0.1-1.0); BUN/CREATININE RATIO 12; CALCIUM 9.3 MG/DL (8.5-10.1); CARBON DIOXIDE 22 MMOL/L (21-32); CHLORIDE 107 MMOL/L (98-107); CREATININE SERUM 0.84 MG/DL (0.60-1.30); GFR ESTIMATED > 60; GLUCOSE 100 MG/DL (70-105); POTASSIUM 4.2 MMOL/L (3.6-5.0); SODIUM 140 MMOL/L (135-145); TOTAL PROTEIN 6.5 GM/DL (6.4-8.2)
[2019-11-09 15:29] LABS: CHOLESTEROL 112 MG/DL (< 200); HDL CHOLESTEROL 32 MG/DL (40-60); TRIGLYCERIDES 157 MG/DL (<150); VLDL CHOLESTEROL 31 MG/DL (5-40)
== END ==
LOC: LAB FS 09:22
PROVIDERS: ATTEND Internal Medicine Cardiovascular Disease
DX: I25.10 Atherosclerotic heart disease of native coronary artery without angina pectoris (principal); E78.2 Mixed hyperlipidemia; I10 Essential (primary) hypertension
CPT/HCPCS: 36415; 80053; 80061

== ENCOUNTER → 2021-02-15 | Outpatient (CLI) | payer BC ==
[~2021-02-15] MED LIST changes: +ASPI-1238 PO; -ASPI-983 PO; -PANT40TA3 PO; +PANT40TA52 PO
[2021-02-15 09:19] LABS: POTASSIUM 4.3 MMOL/L (3.6-5.0)
[2021-02-15 09:20] LABS: ALBUMIN 4.2 GM/DL (3.2-4.5); BILIRUBIN,TOTAL 0.7 MG/DL (0.1-1.0); CALCIUM 9.1 MG/DL (8.5-10.1); CREATININE SERUM 0.94 MG/DL (0.60-1.30); TOTAL PROTEIN 6.8 GM/DL (6.4-8.2)
== END ==
LOC: LAB FS 08:14
PROVIDERS: ATTEND Internal Medicine Cardiovascular Disease
DX: E78.2 Mixed hyperlipidemia (principal)
CPT/HCPCS: 36415; 80053; 80061

== ENCOUNTER → 2021-04-26 | Outpatient (CLI) | payer BC ==
[~2021-04-26] MED LIST changes: +CATHETER FLUSH 10 ML SYR IV PRN
[2021-04-27 08:20] VITALS: BP 115/93
--- NOTE | 2021-04-27 08:20 | Cardiology Stress Test Report ---
Stress Test Report Date of Procedure/Referring: Date of Procedure: Apr 27, 2021 PCP Audie Rahman MD Admitting Physician Thony Saenz MD Indications: HTN Baseline Heart Rate: 72 Baseline Blood Pressure: Blood Pressure Systolic: 115 Blood Pressure Diastolic: 93 Baseline EKG: Baseline EKG: NSR Summary: After explaining the procedure and details to the patient, he signed the consent and was brought to the stress nuclear laboratory. Patient exercised on standard Med protocol, EKG, heart rate and blood pressure were monitored continuously, resting and stress doses of radio tracer were injected, imaging was acquired and reviewed in the short axis, horizontal long axis and vertical long axis views Patient was able to exercise for a total of 7 minutes on Med protocol, METs 8.5 Maximum heart rate 131 Maximum blood pressure 192/98 Stress EKG, Minimal nondiagnostic changes Recovery EKG, Return to baseline TID: 1.04 SSS: 1 SDS: 1 EF: 50 Conclusion: 1. Good exercise tolerance for a total of 7 minutes on standard Med protocol, 8.5 METS achieving 85% of maximal expected heart rate 2. Appropriate heart rate response to exercise with mild hypertensive response to exercise return to baseline during recovery 3. Mild reversible ischemia involving the anterior apical segment and apex 4. Normal left ventricular size, EF 50% AUDIE RAHMAN MD Apr 27, 2021 08:20
== END ==
LOC: CARD 12:00
PROVIDERS: ATTEND Internal Medicine Cardiovascular Disease
DX: I10 Essential (primary) hypertension (principal)
CPT/HCPCS: 78452; 93017; 93306; A9502

== ENCOUNTER → 2021-08-11 | Outpatient (CLI) | payer BC ==
[~2021-08-11] MED LIST changes: -CATHETER FLUSH 10 ML SYR IV PRN
[2021-08-11 10:13] LABS: HEMATOCRIT 46 % (40-54); MEAN CORPUSCULAR HEMOGLOBIN 30 pg (25-34); MEAN CORPUSCULAR HGB CONC 35 g/dL (32-36); MEAN CORPUSCULAR VOLUME 85 fL (80-99); MEAN PLATELET VOLUME 12.2 fL (9.0-12.2); PLATELET COUNT 217 10^3/uL (130-400); WHITE BLOOD COUNT 9.1 10^3/uL (4.3-11.0)
[2021-08-11 10:15] LABS: BILIRUBIN,TOTAL 0.4 MG/DL (0.1-1.0); CALCIUM 9.2 MG/DL (8.5-10.1); CREATININE SERUM 0.94 MG/DL (0.60-1.30); POTASSIUM 4.2 MMOL/L (3.6-5.0)
[2021-08-11 10:16] LABS: ALBUMIN 4.3 GM/DL (3.2-4.5)
== END ==
LOC: LAB FS 08:57
PROVIDERS: ATTEND Internal Medicine Cardiovascular Disease
DX: I25.10 Atherosclerotic heart disease of native coronary artery without angina pectoris (principal); I65.23 Occlusion and stenosis of bilateral carotid arteries; I10 Essential (primary) hypertension; E78.2 Mixed hyperlipidemia
CPT/HCPCS: 36415; 80053; 80061; 84443; 85027

== ENCOUNTER → 2021-09-13 | Outpatient (CLI) | payer BC ==
[~2021-09-13] VITALS: Ht 175 cm; Wt 77.0 kg
[~2021-09-13] MED LIST changes: +CATHETER FLUSH 10 ML SYR IVP PRN
[2021-09-13 13:13] VITALS: BP 87/59
--- NOTE | 2021-09-13 15:10 | Cardiology Stress Test Report ---
Stress Test Report Date of Procedure/Referring: Date of Procedure: Sep 13, 2021 PCP Lashaun Saenz MD Admitting Physician Admitting Physician: Attending Physician: Akira Rahman MD Indications: HTN Baseline Heart Rate: 73 Baseline Blood Pressure: Blood Pressure Systolic: 87 Blood Pressure Diastolic: 59 Vital Signs Date Time Temp Pulse Resp B/P (MAP) Pulse Ox O2 Delivery O2 Flow Rate FiO2 09/13/21 13:13 73 87/59 (68) 98 Baseline Vital Signs Vital Signs Date Time Temp Pulse Resp B/P (MAP) Pulse Ox O2 Delivery O2 Flow Rate FiO2 09/13/21 13:13 73 87/59 (68) 98 Baseline EKG: Baseline EKG: NSR Summary: After explaining the procedure and details to the patient, he signed the cons ent and was brought to the stress nuclear laboratory. Patient exercised on standard Med protocol, EKG, heart rate and blood pressure were monitored continuously, resting and stress doses of radio tracer were injected, imaging was acquired and reviewed in the short axis, horizontal long axis and vertical long axis views Patient was able to exercise for a total of 8 minutes on Med protocol, METs 9.7 Maximum heart rate 132 Maximum blood pressure 211/79 Stress EKG, Minimal nondiagnostic changes Recovery EKG, Return to baseline TID: 1.07 SSS: 2 SDS: 0 EF: 48 Conclusion: 1. Good exercise tolerance for a total of 8 minutes on standard Med protocol, 9.7 METS achieving 86% of maximal expected heart rate 2. Appropriate heart rate response to exercise with severe hypertensive response to exercise with peak blood pressure 211/79 return to baseline during recovery 3. Nondiagnostic EKG changes with exercise return to baseline during recovery 4. No significant ischemia or infarction on SPECT images 5. Normal left ventricular size, ejection fraction 48% Copy Copies To 1: LASHAUN SAENZ MD, BASHAR J MD Sep 13, 2021 15:10
== END ==
LOC: CARD 11:00
PROVIDERS: ATTEND Internal Medicine Cardiovascular Disease
DX: I10 Essential (primary) hypertension (principal); I25.10 Atherosclerotic heart disease of native coronary artery without angina pectoris
CPT/HCPCS: 78452; 93017; 93306; A9502